=== PATIENT | male | born 1950 | race American Indian/Alaskan Native ===

== ENCOUNTER 2017-10-06 17:43 | Inpatient (IN) | payer MEDICARE ==
[2017-10-06] MEDS ORDERED: DUONEB *Not for PRN Use IH ONE (18:13)
[2017-10-06] MEDS ORDERED: NACL 0.9% 1000 ML 1,000 ML ONE (18:17)
[2017-10-06] MEDS ORDERED: HumuLIN R SUB-Q ONE (18:20)
[2017-10-06] MEDS ORDERED: HumuLIN R ONE (18:21)
[2017-10-06 18:37] LABS: Basophils # (Auto) 0.1 K/mm3 (0.0-0.1); Basophils % (Auto) 0.8 % (0.0-1.8); Hematocrit 42.8 % (35.5-45.6); Hemoglobin 14.4 gm/dl (11.8-15.2); Lymphocytes # (Auto) 1.1 K/mm3 (1.2-5.4); Lymphocytes % (Auto) 14.3 % (13.4-35.0); Mean Corpuscular HGB Conc 34 % (32-34); Mean Corpuscular Hemoglobin 31 pg (28-32); Mean Corpuscular Volume 93 fl (84-94); Monocytes # (Auto) 0.5 K/mm3 (0.0-0.8); Monocytes % (Auto) 6.6 % (0.0-7.3); Platelet Count 190 K/mm3 (140-440); Red Blood Count 4.61 M/mm3 (3.65-5.03); Red Cell Distribution Width 15.3 % (13.2-15.2)
[2017-10-06 18:48] LABS: INR 1.18 (0.87-1.13)
[2017-10-06 18:57] LABS: Albumin 2.6 g/dL (3.9-5); Calcium 8.8 mg/dL (8.4-10.2)
[2017-10-06] MEDS ORDERED: NACL 0.9% 1000 ML 1,000 ML IV ONE ×4 (19:00→22:03)
[2017-10-06] MEDS ORDERED: VANCOMYCIN VIAL IV ONE (19:07)
--- NOTE | 2017-10-06 19:10 | Emergency Department Report ---
ED Shortness of Breath HPI - General Chief Complaint: Dyspnea/Respdistress Stated Complaint: RASHID Time Seen by Provider: 10/06/17 18:10 Source: EMS Mode of arrival: Stretcher Limitations: Altered Mental Status - History of Present Illness Initial Comments: History was obtained from EMS. At noon today, patient started having respiratory difficulties. This progressed and patient became less responsive. EMS was called. At baseline, patient is interactive. 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 Absent: respiratory distress - Cardiovascular Cardiovascular Exam: Present: regular rate, normal rhythm, tachycardia, JVD. Absent: systolic murmur, diastolic murmur, rubs, gallop - GI/Abdominal GI/Abdominal exam: Present: soft, distended - Rectal Rectal exam: Present: deferred - Extremities Exam Extremities exam: Present: normal inspection - Back Exam Back exam: Present: normal inspection - Neurological Exam Neurological exam: Present: altered - Skin Skin exam: Present: warm, dry, intact, normal color. Absent: rash ED Course Vital Signs 10/06/17 10/06/17 10/06/17 17:54 17:55 18:00 Temperature 99.8 F H Pulse Rate 120 H 118 H 117 H Pulse Rate [ Bilateral] Respiratory 30 H 31 H Rate Respiratory Rate [Bilateral ] Blood Pressure 104/60 104/60 O2 Sat by Pulse 92 92 91 Oximetry 10/06/17 10/06/17 10/06/17 18:17 18:22 18:25 Temperature Pulse Rate 99 H Pulse Rate [ 102 H 99 H Bilateral] Respiratory 29 H Rate Respiratory 28 H 28 H Rate [Bilateral ] Blood Pressure O2 Sat by Pulse 99 Oximetry 10/06/17 10/06/17 19:03 19:20 Temperature Pulse Rate 99 H Pulse Rate [ Bilateral] Respiratory 16 16 Rate Respiratory Rate [Bilateral ] Blood Pressure 116/60 O2 Sat by Pulse 94 92 Oximetry ED Medical Decision Making - Lab Data Result diagrams: 10/06/17 18:24 10/06/17 20:31 - Radiology Data Radiology results: report reviewed, image reviewed - Medical Decision Making 66-year-old male with past medical history of liver cancer, dementia, full code that presents to the ER with respiratory distress. Patient unable to provide history. He was placed on BiPAP, which improved his breathing. However , patient vomited and the BiPAP was removed. He is placed on a Ventimask after this. GCS was 11 on presentation. Patient sounded rhonchorous bilaterally. Patient was given empiric antibiotics to cover for pneumonia. An NG tube was placed due to significant abdominal distention noted on abdominal x-ray. Lab work shows profound M anemia. Likely patient suffered from hepatic encephalopathy. Patient be started on lactulose. Lactic acid was 9 on presentation. Likely this could be due to liver failure versus severe sepsis. Patient was given IV fluids and repeat lactate was 6.8. Continue to trend. Glucose was elevated of presentation. Patient had an gap and acidosis. This could be due to his chronic liver disease. He'll be started on insulin drip. CT imaging shows concern for lower lobe pneumonia, constipation, and known liver malignancy. Patient will be admitted for further management. Problem list - hepatic encephalopathy - HCAP - respiratory distress - severe sepsis - lactic acidosis - constipation - DKA Critical Care Time: Yes Critical care time in (mins) excluding proc time.: 100 Critical care attestation.: If time is entered above; I have spent that time in minutes in the direct care of this critically ill patient, excluding procedure time. ED Disposition Clinical Impression: Hepatic encephalopathy, Severe sepsis, HCAP (healthcare-associated pneumonia), DKA (diabetic ketoacidoses), Altered mental status, Respiratory distress Disposition: 09 OP ADMIT IP TO THIS HOSP Is pt being admited?: Yes Does the pt Need Aspirin: No Condition: Serious Instructions: Bacterial Pneumonia (ED), Diabetic Ketoacidosis (ED)
[2017-10-06] MEDS ORDERED: D50W (25GM) Syringe IV PRN (19:20)
[2017-10-06] MEDS ORDERED: VANCOMYCIN PHARMACY TO DOSE IV SCH (20:00)
[2017-10-06] MEDS ORDERED: HumuLIN R 100 UNITS in NACL 0.9% 99 ML IV SCH (20:00)
[2017-10-06] MEDS ORDERED: VANCOMYCIN 1,250 MG in NACL 0.9% 250ML 250 ML IV ONE (20:00)
[2017-10-06] MEDS ORDERED: ZOSYN/NS 4.5GM/100ML 4.5 GM/100 ML VIAL IV SCH (20:00)
[2017-10-06 20:20] LABS: BUN/Creatinine Ratio 28; Blood Urea Nitrogen 39 mg/dL (9-20); Calcium 8.4 mg/dL (8.4-10.2); Hemolysis Index 5
--- NOTE | 2017-10-06 20:22 | XRay Report ---
FINAL REPORT PROCEDURE: XR CHEST 1V AP TECHNIQUE: Chest radiograph anteroposterior view. CPT 60845 HISTORY: c/f aspiration event COMPARISON: 10/06/2017 FINDINGS: Heart: Normal. Mediastinum/Vessels: Normal. Lungs/Pleural space: Lungs are hyperinflated. There are no confluent infiltrates or mass lesions. Pleural spaces are clear.. Bony thorax: No acute osseous abnormality. Life support devices: None. IMPRESSION: COPD No acute pulmonary process.
[2017-10-06] MEDS ORDERED: CEPHULAC FEEDTUBE ONE (20:49)
[2017-10-06 21:00] LABS: BUN/Creatinine Ratio 28; Blood Urea Nitrogen 37 mg/dL (9-20); Calcium 8.4 mg/dL (8.4-10.2); Hemolysis Index 18
--- NOTE | 2017-10-06 21:10 | XRay Report ---
FINAL REPORT EXAM: XR ABDOMEN 1V AP HISTORY: c/f NGT placement TECHNIQUE: KUB was performed Comparison: Earlier same day FINDINGS: A nasogastric tube is present. It projects over the mid gastric body. The stomach is extremely distended with air and debris. CT performed approximately 3 hours earlier shows the nasogastric tube to be present further in the stomach at that time with persistent distension. Question bezoar. Moderate fecal retention right abdomen. IMPRESSION: Nasogastric tube tip projects over the mid gastric body. However, the stomach remains distended with air and debris, question bezoar. Recommend confirming gastric location of tube.
--- NOTE | 2017-10-06 21:15 | XRay Report ---
FINAL REPORT EXAM: XR CHEST 1V AP HISTORY: Altered Mental Status TECHNIQUE: Frontal chest x-ray Comparison: Earlier same day FINDINGS: Heart size is normal. Lungs are hyperexpanded with mild coarsening of the bronchovascular interstitium unchanged from previous. Subtle superimposed interstitial infiltrates cannot be excluded. Stomach is massively distended and has a heterogeneous appearance, question gastric bezoar. There is a right humeral surgical neck fracture incompletely imaged which may be nonacute. Previous CT suggests chronic nonunion with callus formation. IMPRESSION: Coarsened bronchovascular interstitium may represent chronic interstitial change or interstitial infiltrates. Not significantly changed from earlier same day. Distended heterogeneous stomach, question gastric bezoar. Recommend nasogastric tube placement.
--- NOTE | 2017-10-06 21:20 | XRay Report ---
FINAL REPORT EXAM: XR ABDOMEN 1V AP HISTORY: abd distention TECHNIQUE: KUB was performed. FINDINGS: Image demonstrates extremely distended stomach with heterogeneous appearance which may represent debris or bezoar. There is diffuse fecal retention. Cannot assess for free air on this single view supine exam. Calcified gallstones. IMPRESSION: Extremely distended heterogeneous stomach. Possible bezoar. Diffuse fecal retention. Cause fight gallstones. Cannot exclude free air on this supine view.
--- NOTE | 2017-10-06 22:32 | Cat Scan Report ---
FINAL REPORT PROCEDURE: CT ABDOMEN PELVIS W CON TECHNIQUE: Computerized axial tomography of the abdomen and pelvis was performed after the IV injection of iodinated nonionic contrast. HISTORY: abd distention w/ vomiting, h/o liver ca COMPARISON: No prior studies are available for comparison. FINDINGS: An irregular area of consolidation is noted involving right lower lobe. There is diffuse prominence of interstitial markings. Liver demonstrates mild degree of nodular outlines. There is no evidence of splenomegaly. An in homogeneously enhancing lesion is noted in the left lobe liver measuring 4.8 x 4.1 centimeters. Bilateral adrenal glands and bilateral kidneys are unremarkable. Urinary bladder is well distended with normal outlines. Aorta is of normal caliber. There is no free fluid or free air. Multiple calculi are noted in the dependent portion of gallbladder measuring up to 9 millimeters. Small bowel loops are within normal limits. Large amount of residual stool is noted. Appendix is not distinctly visualized. There are no inflammatory changes in the right lower quadrant. A nasogastric tube is in place. Vertebral height is normal. Moderate degree degenerative changes are noted involving the lumbar spine. There is evidence of intrahepatic biliary dilatation left more than right. IMPRESSION: Irregular consolidation of right lower lobe is suspicious for pneumonia. A prominent interstitial markings most likely represent interstitial fibrosis Inhomogeneous enhancing mass lesion left lobe liver is suspicious for malignancy. Ultrasound and/or MRI evaluation is recommended. Intrahepatic biliary dilatation Nodular outlines of liver are suspicious for cirrhosis. Cholelithiasis. Ultrasound evaluation is recommended to rule out cholecystitis. Large amount of residual stool consistent with constipation.
--- NOTE | 2017-10-06 22:41 | Cat Scan Report ---
FINAL REPORT PROCEDURE: CT CHEST W CON TECHNIQUE: Computerized axial tomography of the chest was performed during the IV injection of iodinated nonionic contrast. HISTORY: c/f PE COMPARISON: No prior studies are available for comparison. TECHNICAL QUALITY: Satisfactory. FINDINGS: This study is limited due to breathing artifacts. Diffuse prominence of interstitial markings is noted. An irregular nodule measuring 9 millimeters is noted in the posterior portion right upper lobe. An irregular area of consolidation is noted involving right lower lobe. Additional scattered infiltrates are identified in the right lower lobe. Hilar structures are within normal limits. Aorta is of normal caliber. Thyroid demonstrates normal size and density. There is no lymphadenopathy. A large varicose vein is identified extending from the portal vein to the left renal vein. IMPRESSION: Consolidation right lower lobe and infiltrates right lower lobe are consistent with pneumonia. An irregular nodule is noted in the right upper lobe measuring about 9 millimeters which may also represent a nodular infiltrate. Diffuse prominence of interstitial markings are most consistent with interstitial fibrosis. 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
--- NOTE | 2017-10-06 23:02 | XRay Report ---
FINAL REPORT PROCEDURE: XR HUMERUS 2+V RT TECHNIQUE: RIGHT humerus radiographs, AP and lateral views. HISTORY: eval for fx COMPARISON: No prior studies are available for comparison. FINDINGS: Fracture (s) and/or Dislocation(s): An ununited comminuted fracture is noted involving the surgical neck right humerus with extensive callus formation and soft tissue ossification. Joint space(s): Glenohumeral and acromioclavicular alignment is maintained. Soft tissues: Normal. Bone mineralization: Extensive callus formation and soft tissue ossification is noted Foreign bodies: None. IMPRESSION: Ununited comminuted fracture surgical neck right humerus as described above. Comparison with prior studies would be of help.
--- NOTE | 2017-10-06 23:51 | History and Physical Report ---
History of Present Illness Date of examination: 10/06/17 History of present illness: 67-year-old man with a history of hepatocellular cancer, CHF, dementia, hypertension diabetes, cirrhosis was sent from the halfway to the emergency room for evaluation of shortness of breath. Patient is unable to give a history, review of system is unobtainable. Patient was recently in the hospital, he had a right humeral fracture, conservative management was initiated PAST MEDICAL HISTORY:hepatocellular cancer, CHF, dementia, hypertension diabetes , cirrhosis PAST SURGICAL HISTORY: Unknown SOCIAL HISTORY: [facility] resident, unknown tobacco, alcohol, drugs FAMILY HISTORY: Unknown Medications and Allergies Allergies Allergy/AdvReac Type Severity Reaction Status Date / Time No Known Allergies Allergy Verified 10/06/17 18:35 Active Meds: Active Medications Dextrose (D50w (25gm) Syringe) 0 ml IV PRN PRN PRN Reason: Hypoglycemia Piperacillin Sod/Tazobactam Sod (Zosyn/Ns 4.5gm/100ml) 4.5 gm in 100 mls @ 200 mls/hr IV ONCE YANIV Insulin Human Regular 100 (units/ Sodium Chloride) 100 mls @ 1 mls/hr IV TITR YANIV; Protocol Last Titration: 10/06/17 22:53 Dose: 7 units/hr, 7 mls/hr Vancomycin HCl (Vancomycin Pharmacy To Dose) 1 each IV PKCONSULT YANIV Exam - Physical Exam Narrative exam: Gen. appearance: Patient lying in bed, no apparent distress HEENT: Normocephalic, atraumatic, pupils equally round and reactive to light, unable to do extraocular movement, and no sclericterus,. No JVD or thyromegaly or nodule,neck supple, no carotid bruit ,mucous membranes moist, no exudate or erythema Heart: S1, S2, regular rate and rhythm Lungs: Clear to auscultation bilaterally, breathing comfortable Abdomen: Positive bowel sounds, softr, nondistended, no organomegaly Extremity: No edema, cyanosis, clubbing Skin: No rash, nodules, warm, dry Neuro: ldethargic - Constitutional Vitals: Temp Pulse Resp BP Pulse Ox 99.8 F H 99 H 16 116/60 92 10/06/17 17:55 10/06/17 19:03 10/06/17 19:20 10/06/17 19:03 10/06/17 19:20 Results - Labs CBC & Chem 7: 10/06/17 18:24 10/07/17 01:34 Labs: Abnormal lab results 10/06/17 10/06/17 10/06/17 Range/Units 18:20 18:21 18:24 RDW 15.3 H (13.2-15.2) % Lymph # 1.1 L (1.2-5.4) K/mm3 Seg Neutrophils % 78.3 H (40.0-70.0) % PT (12.2-14.9) Sec. INR (0.87-1.13) POC ABG pCO2 22.2 L (35-45) POC ABG pO2 170 H (80-105) Sodium (137-145) mmol/L Potassium (3.6-5.0) mmol/L Chloride (98-107) mmol/L Carbon Dioxide (22-30) mmol/L BUN (9-20) mg/dL Glucose (75-100) mg/dL POC Glucose > 500 H (70-105) Lactic Acid (0.7-2.0) mmol/L Phosphorus (2.5-4.5) mg/dL Alkaline Phosphatase (35-129) units/L Ammonia (25-60) umol/L Total Protein (6.3-8.2) g/dL Albumin (3.9-5) g/dL 10/06/17 10/06/17 10/06/17 Range/Units 18:24 18:24 18:24 RDW (13.2-15.2) % Lymph # (1.2-5.4) K/mm3 Seg Neutrophils % (40.0-70.0) % PT 15.7 H (12.2-14.9) Sec. INR 1.18 H (0.87-1.13) POC ABG pCO2 (35-45) POC ABG pO2 (80-105) Sodium (137-145) mmol/L Potassium (3.6-5.0) mmol/L Chloride (98-107) mmol/L Carbon Dioxide 14 L (22-30) mmol/L BUN 39 H (9-20) mg/dL Glucose 564 H* (75-100) mg/dL POC Glucose (70-105) Lactic Acid 10.00 H* (0.7-2.0) mmol/L Phosphorus (2.5-4.5) mg/dL Alkaline Phosphatase 266 H (35-129) units/L Ammonia (25-60) umol/L Total Protein 9.1 H (6.3-8.2) g/dL Albumin 2.6 L (3.9-5) g/dL 10/06/17 10/06/17 10/06/17 Range/Units 18:29 19:37 19:37 RDW (13.2-15.2) % Lymph # (1.2-5.4) K/mm3 Seg Neutrophils % (40.0-70.0) % PT (12.2-14.9) Sec. INR (0.87-1.13) POC ABG pCO2 (35-45) POC ABG pO2 (80-105) Sodium (137-145) mmol/L Potassium (3.6-5.0) mmol/L Chloride (98-107) mmol/L Carbon Dioxide (22-30) mmol/L BUN (9-20) mg/dL Glucose (75-100) mg/dL POC Glucose (70-105) Lactic Acid 9.10 H* (0.7-2.0) mmol/L Phosphorus 4.60 H (2.5-4.5) mg/dL Alkaline Phosphatase (35-129) units/L Ammonia 611.0 H (25-60) umol/L Total Protein (6.3-8.2) g/dL Albumin (3.9-5) g/dL 10/06/17 10/06/17 10/06/17 Range/Units 19:37 20:31 20:31 RDW (13.2-15.2) % Lymph # (1.2-5.4) K/mm3 Seg Neutrophils % (40.0-70.0) % PT (12.2-14.9) Sec. INR (0.87-1.13) POC ABG pCO2 (35-45) POC ABG pO2 (80-105) Sodium 147 H (137-145) mmol/L Potassium 3.5 L (3.6-5.0) mmol/L Chloride 109.2 H (98-107) mmol/L Carbon Dioxide 14 L 15 L (22-30) mmol/L BUN 39 H 37 H (9-20) mg/dL Glucose 531 H* 526 H* (75-100) mg/dL POC Glucose (70-105) Lactic Acid 8.10 H* (0.7-2.0) mmol/L Phosphorus (2.5-4.5) mg/dL Alkaline Phosphatase (35-129) units/L Ammonia (25-60) umol/L Total Protein (6.3-8.2) g/dL Albumin (3.9-5) g/dL 10/06/17 10/06/17 Range/Units 21:23 22:57 RDW (13.2-15.2) % Lymph # (1.2-5.4) K/mm3 Seg Neutrophils % (40.0-70.0) % PT (12.2-14.9) Sec. INR (0.87-1.13) POC ABG pCO2 (35-45) POC ABG pO2 (80-105) Sodium (137-145) mmol/L Potassium (3.6-5.0) mmol/L Chloride (98-107) mmol/L Carbon Dioxide (22-30) mmol/L BUN (9-20) mg/dL Glucose (75-100) mg/dL POC Glucose 361 H (70-105) Lactic Acid 6.80 H* (0.7-2.0) mmol/L Phosphorus (2.5-4.5) mg/dL Alkaline Phosphatase (35-129) units/L Ammonia (25-60) umol/L Total Protein (6.3-8.2) g/dL Albumin (3.9-5) g/dL - Imaging and Cardiology Chest x-ray: report reviewed Abdominal x-ray: report reviewed CT scan - abdomen: report reviewed CT scan - chest: report reviewed CT scan - pelvis: report reviewed Assessment and Plan Assessment DKA Sepsis pneumonia Hepatic encephalopathy CHF, stable and Chronic right humeral fracture Hepatocellular cancer Dementia Plan Started DKA protocol with IV insulin Hold IV fluids secondary to CHF, IV fluid already given in the emergency room Start IV Zosyn, status post vancomycin Start lactulose, monitor ammonia level, follow cultures Consult critical care, place right arm in a sling DVT prophylaxis
[2017-10-07] MEDS ORDERED: SODIUM CHLORIDE FLUSH SYRINGE 10 ML IV PRN (00:51)
[2017-10-07] MEDS ORDERED: TYLENOL PO PRN (00:51)
[2017-10-07] MEDS ORDERED: CEPHULAC PO PRN (00:51)
[2017-10-07 01:14] LABS: BUN/Creatinine Ratio 33; Blood Urea Nitrogen 33 mg/dL (9-20); Calcium 8.4 mg/dL (8.4-10.2); Hemolysis Index 9
[2017-10-07 02:21] LABS: BUN/Creatinine Ratio 36; Blood Urea Nitrogen 32 mg/dL (9-20); Calcium 8.5 mg/dL (8.4-10.2); Hemolysis Index 3
[2017-10-07] MEDS ORDERED: K-DUR PO ONE (03:37)
[2017-10-07] MEDS: CEPHULAC PO SCH ×3 (05:24→18:42)
[2017-10-07 05:25] LABS: BUN/Creatinine Ratio 39; Blood Urea Nitrogen 31 mg/dL (9-20); Calcium 8.2 mg/dL (8.4-10.2); Hemolysis Index 65
[2017-10-07] MEDS: ZOSYN/NS 3.375GM/50ML 3.375 GM/50 ML BAG IV SCH ×3 (07:53→22:20)
[2017-10-07] MEDS: SODIUM CHLORIDE FLUSH SYRINGE 10 ML IV SCH ×2 (10:10→22:05)
[2017-10-07 10:31] LABS: Albumin 2.3 g/dL (3.9-5); Bilirubin,Direct 0.3 mg/dL (0-0.2)
--- NOTE | 2017-10-07 10:45 | Progress Note ---
Assessment and Plan Assessment and plan: Sepsis syndrome On Zosyn and vancomycin. Blood cultures drawn Hepatic encephalopathy. Ammonia level is improving. Ammonia now 103 , was 611 on admission Consult GI Recheck Ammonia level in am Diabetic ketoacidosis he is on Insulin drip. Anion gap is now close to normal Will dc Insulin drip and transittion to subcut Insulin Hypernatremia. Repeat BMP Hypokalemia. Will replete and recheck. Lactic acidosis due to Sepsis Right humerus fracture, s/p sling Malnutrition. Consult Windows Administrator DVT prophylaxis: SCDs only. No anticoag given because of liver cancer. History Interval history: Patient is 67 yo with hepatocellular cancer, sent in from SNF for altered mental status Hospitalist Physical - Physical exam Narrative exam: General: Not in acute distress, restless HEENT:Normocephalic, atraumatic Neck:supple,no JVD Lungs: Clear to auscultation bilaterally, no crackles, no wheeze Heart:S1 and S2 regular tachycardia, no murmurs, rubs or gallop Abd: soft, non tender, non distended, normal bowel sounds Ext: No edema, no clubbing, no cyanosis Neuro: Lethargic, confused,restless,moves all ext. - Constitutional Vitals: Temp Pulse Resp BP Pulse Ox 98.3 F 91 H 18 121/67 100 10/07/17 07:34 10/07/17 07:34 10/07/17 07:15 10/07/17 07:15 10/07/17 07:15 Results - Labs CBC & Chem 7: 10/06/17 18:24 10/07/17 19:01 Labs: Laboratory Last Values WBC 7.4 K/mm3 (4.5-11.0) 10/06/17 18:24 RBC 4.61 M/mm3 (3.65-5.03) 10/06/17 18:24 Hgb 14.4 gm/dl (11.8-15.2) 10/06/17 18:24 Hct 42.8 % (35.5-45.6) 10/06/17 18:24 MCV 93 fl (84-94) 10/06/17 18:24 MCH 31 pg (28-32) 10/06/17 18:24 MCHC 34 % (32-34) 10/06/17 18:24 RDW 15.3 % (13.2-15.2) H 10/06/17 18:24 Plt Count 190 K/mm3 (140-440) 10/06/17 18:24 Lymph % (Auto) 14.3 % (13.4-35.0) 10/06/17 18:24 [place] % (Auto) 6.6 % (0.0-7.3) 10/06/17 18: Eos % (Auto) 0.0 % (0.0-4.3) 10/06/17 18: Baso % (Auto) 0.8 % (0.0-1.8) 10/06/17 18: Lymph # 1.1 K/mm3 (1.2-5.4) L 10/06/17 18: [place] # 0.5 K/mm3 (0.0-0.8) 10/06/17 18: Eos # 0.0 K/mm3 (0.0-0.4) 10/06/17 18: Baso # 0.1 K/mm3 (0.0-0.1) 10/06/17 18: Seg Neutrophils % 78.3 % (40.0-70.0) H 10/06/17 18: Seg Neutrophils # 5.8 K/mm3 (1.8-7.7) 10/06/17 18: PT 15.7 Sec. (12.2-14.9) H 10/06/17 18: INR 1.18 (0.87-1.13) H 10/06/17 18: POC ABG pH 7.396 (7.35-7.45) 10/06/17 18:20 POC ABG pCO2 22.2 (35-45) L 10/06/17 18:20 POC ABG pO2 170 (80-105) H 10/06/17 18:20 POC ABG HCO3 13.6 10/06/17 18:20 POC ABG Total CO2 14 10/06/17 18:20 POC ABG O2 Sat 100 10/06/17 18:20 POC ABG Base Excess -11 10/06/17 18:20 FiO2 85 % 10/06/17 18:20 Sodium 147 mmol/L (137-145) H 10/07/17 04:58 Potassium 3.7 mmol/L (3.6-5.0) 10/07/17 04:58 Chloride 113.8 mmol/L (98-107) H 10/07/17 04:58 Carbon Dioxide 17 mmol/L (22-30) L 10/07/17 04:58 Anion Gap 20 mmol/L 10/07/17 04:58 BUN 31 mg/dL (9-20) H 10/07/17 04:58 Creatinine 0.8 mg/dL (0.8-1.5) 10/07/17 04:58 Estimated GFR > 60 ml/min 10/07/17 04:58 BUN/Creatinine Ratio 39 % 10/07/17 04:58 Glucose 100 mg/dL (75-100) 10/07/17 04:58 POC Glucose 249 (70-105) H 10/07/17 10:10 Ketones Quantitative Negative (Negative) 10/06/17 Unknown Lactic Acid 3.10 mmol/L (0.7-2.0) H* 10/07/17 Unknown Calcium 8.2 mg/dL (8.4-10.2) L 10/07/17 04:58 Phosphorus 4.60 mg/dL (2.5-4.5) H 10/06/17 19:37 Magnesium 2.20 mg/dL (1.7-2.3) 10/06/17 19:37 Total Bilirubin 1.10 mg/dL (0.1-1.2) 10/07/17 09:29 Direct Bilirubin 0.3 mg/dL (0-0.2) H 10/07/17 09:29 Indirect Bilirubin 0.8 mg/dL 10/07/17 09:29 AST 53 units/L (5-40) H 10/07/17 09:29 ALT 40 units/L (7-56) 10/07/17 09:29 Alkaline Phosphatase 231 units/L (35-129) H 10/07/17 09:29 Ammonia 103.0 umol/L (25-60) H 10/07/17 09:29 Troponin T 0.011 ng/mL (0.00-0.029) 10/06/17 18:24 NT-Pro-B Natriuret Pep 258.8 pg/mL (0-900) 10/06/17 18:24 Total Protein 8.4 g/dL (6.3-8.2) H 10/07/17 09:29 Albumin 2.3 g/dL (3.9-5) L 10/07/17 09:29 Albumin/Globulin Ratio 0.4 % 10/07/17 09:29
[2017-10-07 12:22] LABS: BUN/Creatinine Ratio 40; Blood Urea Nitrogen 28 mg/dL (9-20); Calcium 8.3 mg/dL (8.4-10.2); Hemolysis Index 3
[2017-10-07] MEDS: KCL 10MEQ/100ML 10 MEQ/100 ML BAG IV SCH ×4 (12:49→17:46)
[2017-10-07] MEDS ORDERED: KCL 10MEQ/100ML 10 MEQ/100 ML BAG IV ONE ×5 (12:52→15:54)
[2017-10-07] MEDS ORDERED: NACL 0.9% 1000 ML 1,000 ML IV SCH (13:00)
--- NOTE | 2017-10-07 16:18 | Consultation ---
History of Present Illness - Reason for Consult Consult date: 10/07/17 Hepatic encephalopathy Requesting physician: THERON WAGNER - History of Present Illness Mr. Rudolph is a 67-year-old man who was brought from the senior living with shortness of breath and confusion. He is unable to give a history. His sister did not respond by phone, and his niece is not aware a lot of his history. History is therefore derived from the chart. Patient was recently hospitalized at [facility] with a humeral fracture. He was apparently diagnosed with cirrhosis and hepatocellular carcinoma at that time. According to the ER note, he was referred to the senior living for "conservative management." On admission, patient had an ammonia of greater than 600, and it has now dropped down to 80 with resuscitation and lactulose. He had a CT scan which showed a large left liver lobe mass consistent with neoplasm. He is unable to give any history at present. His niece was unaware of the malignancy. The malignancy however was clearly known when the patient was admitted and likely known by his sister. There is no GI bleeding. Patient appears to have a pneumonia and is being treated for sepsis. Past History Past Medical History: cancer (Likely liver), diabetes, liver disease (cirrhosis) , other (dementia) Past Surgical History: Other (unknown history) Social history: other (Lives in [place]) Medications and Allergies Allergies Allergy/AdvReac Type Severity Reaction Status Date / Time No Known Allergies Allergy Verified 10/06/17 18:35 Home Medications Medication Instructions Recorded Confirmed Last Taken Type Cholecalciferol (Vitamin D3) 1,000 unit PO DAILY 10/07/17 10/07/17 Unknown History [Vitamin D3] Esomeprazole Magnesium [Nexium] 40 mg PO QAM 10/07/17 10/07/17 Unknown History Folic Acid [Folvite] 1 mg PO QDAY 10/07/17 10/07/17 Unknown History Furosemide [Lasix] 20 mg PO QDAY 10/07/17 10/07/17 Unknown History Insulin Detemir [Levemir VIAL] 16 unit SQ QHS 10/07/17 10/07/17 Unknown History Lispro Insulin [Humalog] 5 unit SQ TID 10/07/17 10/07/17 Unknown History Morphine ER [Ms Contin ER] 15 mg PO Q12H 10/07/17 10/07/17 Unknown History Pyridoxine [Vitamin B-6] 50 mg PO DAILY 10/07/17 10/07/17 Unknown History Sennosides [Senna] 17.2 mg PO QHS 10/07/17 10/07/17 Unknown History Spironolactone [Aldactone] 50 mg PO QDAY 10/07/17 10/07/17 Unknown History Thiamine [Vitamin B-1] 100 mg PO QDAY 10/07/17 10/07/17 Unknown History oxyCODONE /ACETAMINOPHEN [Percocet 1 tab PO Q6HR PRN 10/07/17 10/07/17 Unknown History 5/325] Active Meds: Active Medications Acetaminophen (Tylenol) 650 mg PO Q4H PRN PRN Reason: Pain MILD(1-3)/Fever >100.5/CAMPOS Albuterol (Proventil) 2.5 mg IH Q4HRT PRN PRN Reason: Shortness Of Breath Dextrose (D50w (25gm) Syringe) 0 ml IV PRN PRN PRN Reason: Hypoglycemia Last Admin: 10/07/17 05:10 Dose: 50 ml Piperacillin Sod/Tazobactam Sod (Zosyn/Ns 3.375gm/50ml) 3.375 gm in 50 mls @ 100 mls/hr IV Q8HR YANIV; Protocol Last Admin: 10/07/17 14:34 Dose: 100 mls/hr Sodium Chloride (Nacl 0.9% 1000 Ml) 1,000 mls @ 100 mls/hr IV DIRECT YANIV Potassium Chloride (Kcl 10meq/100ml) 10 meq in 100 mls @ 100 mls/hr IV Q1H YANIV Stop: 10/07/17 16:59 Last Admin: 10/07/17 14:34 Dose: 100 mls/hr Insulin Human Isoph/Insulin Regular (Humulin 70/30) 10 unit SUB-Q BIDDIAB YANIV Last Admin: 10/07/17 12:49 Dose: 10 unit Lactulose (Cephulac) 20 gm PO Q6HR YANIV Last Admin: 10/07/17 12:47 Dose: 20 gm Ondansetron HCl (Zofran) 4 mg IV Q8H PRN PRN Reason: Nausea And Vomiting Sodium Chloride (Sodium Chloride Flush Syringe 10 Ml) 10 ml IV BID YANIV Last Admin: 10/07/17 10:10 Dose: 10 ml Sodium Chloride (Sodium Chloride Flush Syringe 10 Ml) 10 ml IV PRN PRN PRN Reason: LINE FLUSH Review of Systems ROS unobtainable: due to mental status Exam - Constitutional Vitals: Temp Pulse Resp BP Pulse Ox 98.3 F 92 H 21 132/68 99 10/07/17 07:34 10/07/17 10:30 10/07/17 10:30 10/07/17 10:30 10/07/17 10:30 General appearance: Present: mild distress, cachectic, disheveled - EENT Eyes: Present: PERRL, EOM intact - Respiratory Respiratory effort: normal Respiratory: bilateral: rhonchi (coarse anteriorly) - Cardiovascular Rhythm: regular Heart Sounds: Present: S1 & S2 - Extremities Extremities: No edema - Abdominal General gastrointestinal: Present: soft, non-tender, other (No masses noted. Some type of skin dressing on abdomen) Results - Labs CBC & Chem 7: 10/06/17 18:24 10/07/17 10:46 Labs: Abnormal lab results 10/06/17 10/06/17 10/06/17 Range/Units 18:20 18:21 18:24 RDW 15.3 H (13.2-15.2) % Lymph # 1.1 L (1.2-5.4) K/mm3 Seg Neutrophils % 78.3 H (40.0-70.0) % PT (12.2-14.9) Sec. INR (0.87-1.13) POC ABG pCO2 22.2 L (35-45) POC ABG pO2 170 H (80-105) Sodium (137-145) mmol/L Potassium (3.6-5.0) mmol/L Chloride (98-107) mmol/L Carbon Dioxide (22-30) mmol/L BUN (9-20) mg/dL Creatinine (0.8-1.5) mg/dL Glucose (75-100) mg/dL POC Glucose > 500 H (70-105) Lactic Acid (0.7-2.0) mmol/L Calcium (8.4-10.2) mg/dL Phosphorus (2.5-4.5) mg/dL Direct Bilirubin (0-0.2) mg/dL AST (5-40) units/L Alkaline Phosphatase (35-129) units/L Ammonia (25-60) umol/L Total Protein (6.3-8.2) g/dL Albumin (3.9-5) g/dL 10/06/17 10/06/17 10/06/17 Range/Units 18:24 18:24 18:24 RDW (13.2-15.2) % Lymph # (1.2-5.4) K/mm3 Seg Neutrophils % (40.0-70.0) % PT 15.7 H (12.2-14.9) Sec. INR 1.18 H (0.87-1.13) POC ABG pCO2 (35-45) POC ABG pO2 (80-105) Sodium (137-145) mmol/L Potassium (3.6-5.0) mmol/L Chloride (98-107) mmol/L Carbon Dioxide 14 L (22-30) mmol/L BUN 39 H (9-20) mg/dL Creatinine (0.8-1.5) mg/dL Glucose 564 H* (75-100) mg/dL POC Glucose (70-105) Lactic Acid 10.00 H* (0.7-2.0) mmol/L Calcium (8.4-10.2) mg/dL Phosphorus (2.5-4.5) mg/dL Direct Bilirubin (0-0.2) mg/dL AST (5-40) units/L Alkaline Phosphatase 266 H (35-129) units/L Ammonia (25-60) umol/L Total Protein 9.1 H (6.3-8.2) g/dL Albumin 2.6 L (3.9-5) g/dL 10/06/17 10/06/17 10/06/17 Range/Units 18:29 19:37 19:37 RDW (13.2-15.2) % Lymph # (1.2-5.4) K/mm3 Seg Neutrophils % (40.0-70.0) % PT (12.2-14.9) Sec. INR (0.87-1.13) POC ABG pCO2 (35-45) POC ABG pO2 (80-105) Sodium (137-145) mmol/L Potassium (3.6-5.0) mmol/L Chloride (98-107) mmol/L Carbon Dioxide (22-30) mmol/L BUN (9-20) mg/dL Creatinine (0.8-1.5) mg/dL Glucose (75-100) mg/dL POC Glucose (70-105) Lactic Acid 9.10 H* (0.7-2.0) mmol/L Calcium (8.4-10.2) mg/dL Phosphorus 4.60 H (2.5-4.5) mg/dL Direct Bilirubin (0-0.2) mg/dL AST (5-40) units/L Alkaline Phosphatase (35-129) units/L Ammonia 611.0 H (25-60) umol/L Total Protein (6.3-8.2) g/dL Albumin (3.9-5) g/dL 10/06/17 10/06/17 10/06/17 Range/Units 19:37 20:31 20:31 RDW (13.2-15.2) % Lymph # (1.2-5.4) K/mm3 Seg Neutrophils % (40.0-70.0) % PT (12.2-14.9) Sec. INR (0.87-1.13) POC ABG pCO2 (35-45) POC ABG pO2 (80-105) Sodium 147 H (137-145) mmol/L Potassium 3.5 L (3.6-5.0) mmol/L Chloride 109.2 H (98-107) mmol/L Carbon Dioxide 14 L 15 L (22-30) mmol/L BUN 39 H 37 H (9-20) mg/dL Creatinine (0.8-1.5) mg/dL Glucose 531 H* 526 H* (75-100) mg/dL POC Glucose (70-105) Lactic Acid 8.10 H* (0.7-2.0) mmol/L Calcium (8.4-10.2) mg/dL Phosphorus (2.5-4.5) mg/dL Direct Bilirubin (0-0.2) mg/dL AST (5-40) units/L Alkaline Phosphatase (35-129) units/L Ammonia (25-60) umol/L Total Protein (6.3-8.2) g/dL Albumin (3.9-5) g/dL 10/06/17 10/06/17 10/06/17 Range/Units 21:23 22:57 23:59 RDW (13.2-15.2) % Lymph # (1.2-5.4) K/mm3 Seg Neutrophils % (40.0-70.0) % PT (12.2-14.9) Sec. INR (0.87-1.13) POC ABG pCO2 (35-45) POC ABG pO2 (80-105) Sodium 149 H (137-145) mmol/L Potassium 3.2 L (3.6-5.0) mmol/L Chloride 113.1 H (98-107) mmol/L Carbon Dioxide 17 L (22-30) mmol/L BUN 33 H (9-20) mg/dL Creatinine (0.8-1.5) mg/dL Glucose 296 H (75-100) mg/dL POC Glucose 361 H (70-105) Lactic Acid 6.80 H* (0.7-2.0) mmol/L Calcium (8.4-10.2) mg/dL Phosphorus (2.5-4.5) mg/dL Direct Bilirubin (0-0.2) mg/dL AST (5-40) units/L Alkaline Phosphatase (35-129) units/L Ammonia (25-60) umol/L Total Protein (6.3-8.2) g/dL Albumin (3.9-5) g/dL 18 18 10/07/17 Range/Units 23:59 00:16 01:28 RDW (13.2-15.2) % Lymph # (1.2-5.4) K/mm3 Seg Neutrophils % (40.0-70.0) % PT (12.2-14.9) Sec. INR (0.87-1.13) POC ABG pCO2 (35-45) POC ABG pO2 (80-105) Sodium (137-145) mmol/L Potassium (3.6-5.0) mmol/L Chloride (98-107) mmol/L Carbon Dioxide (22-30) mmol/L BUN (9-20) mg/dL Creatinine (0.8-1.5) mg/dL Glucose (75-100) mg/dL POC Glucose 265 H (70-105) Lactic Acid 4.60 H* 3.80 H* (0.7-2.0) mmol/L Calcium (8.4-10.2) mg/dL Phosphorus (2.5-4.5) mg/dL Direct Bilirubin (0-0.2) mg/dL AST (5-40) units/L Alkaline Phosphatase (35-129) units/L Ammonia (25-60) umol/L Total Protein (6.3-8.2) g/dL Albumin (3.9-5) g/dL 10/07/17 10/07/17 10/07/17 Range/Units 01:32 01:34 03:50 RDW (13.2-15.2) % Lymph # (1.2-5.4) K/mm3 Seg Neutrophils % (40.0-70.0) % PT (12.2-14.9) Sec. INR (0.87-1.13) POC ABG pCO2 (35-45) POC ABG pO2 (80-105) Sodium 151 H (137-145) mmol/L Potassium 3.1 L (3.6-5.0) mmol/L Chloride 115.4 H (98-107) mmol/L Carbon Dioxide 19 L (22-30) mmol/L BUN 32 H (9-20) mg/dL Creatinine (0.8-1.5) mg/dL Glucose 172 H (75-100) mg/dL POC Glucose 190 H 68 L (70-105) Lactic Acid (0.7-2.0) mmol/L Calcium (8.4-10.2) mg/dL Phosphorus (2.5-4.5) mg/dL Direct Bilirubin (0-0.2) mg/dL AST (5-40) units/L Alkaline Phosphatase (35-129) units/L Ammonia (25-60) umol/L Total Protein (6.3-8.2) g/dL Albumin (3.9-5) g/dL 10/07/17 10/07/17 10/07/17 Range/Units 04:58 04:58 04:58 RDW (13.2-15.2) % Lymph # (1.2-5.4) K/mm3 Seg Neutrophils % (40.0-70.0) % PT (12.2-14.9) Sec. INR (0.87-1.13) POC ABG pCO2 (35-45) POC ABG pO2 (80-105) Sodium 147 H (137-145) mmol/L Potassium (3.6-5.0) mmol/L Chloride 113.8 H (98-107) mmol/L Carbon Dioxide 17 L (22-30) mmol/L BUN 31 H (9-20) mg/dL Creatinine (0.8-1.5) mg/dL Glucose (75-100) mg/dL POC Glucose (70-105) Lactic Acid 3.50 H* (0.7-2.0) mmol/L Calcium 8.2 L (8.4-10.2) mg/dL Phosphorus (2.5-4.5) mg/dL Direct Bilirubin (0-0.2) mg/dL AST (5-40) units/L Alkaline Phosphatase (35-129) units/L Ammonia 165.0 H (25-60) umol/L Total Protein (6.3-8.2) g/dL Albumin (3.9-5) g/dL 10/07/17 10/07/17 10/07/17 Range/Units 05:21 08:44 09:29 RDW (13.2-15.2) % Lymph # (1.2-5.4) K/mm3 Seg Neutrophils % (40.0-70.0) % PT (12.2-14.9) Sec. INR (0.87-1.13) POC ABG pCO2 (35-45) POC ABG pO2 (80-105) Sodium (137-145) mmol/L Potassium (3.6-5.0) mmol/L Chloride (98-107) mmol/L Carbon Dioxide (22-30) mmol/L BUN (9-20) mg/dL Creatinine (0.8-1.5) mg/dL Glucose (75-100) mg/dL POC Glucose 184 H 222 H (70-105) Lactic Acid (0.7-2.0) mmol/L Calcium (8.4-10.2) mg/dL Phosphorus (2.5-4.5) mg/dL Direct Bilirubin (0-0.2) mg/dL AST (5-40) units/L Alkaline Phosphatase (35-129) units/L Ammonia 103.0 H (25-60) umol/L Total Protein (6.3-8.2) g/dL Albumin (3.9-5) g/dL 10/07/17 10/07/17 10/07/17 Range/Units 09:29 09:29 10:10 RDW (13.2-15.2) % Lymph # (1.2-5.4) K/mm3 Seg Neutrophils % (40.0-70.0) % PT (12.2-14.9) Sec. INR (0.87-1.13) POC ABG pCO2 (35-45) POC ABG pO2 (80-105) Sodium (137-145) mmol/L Potassium (3.6-5.0) mmol/L Chloride (98-107) mmol/L Carbon Dioxide (22-30) mmol/L BUN (9-20) mg/dL Creatinine (0.8-1.5) mg/dL Glucose (75-100) mg/dL POC Glucose 249 H (70-105) Lactic Acid 2.80 H* (0.7-2.0) mmol/L Calcium (8.4-10.2) mg/dL Phosphorus (2.5-4.5) mg/dL Direct Bilirubin 0.3 H (0-0.2) mg/dL AST 53 H (5-40) units/L Alkaline Phosphatase 231 H (35-129) units/L Ammonia (25-60) umol/L Total Protein 8.4 H (6.3-8.2) g/dL Albumin 2.3 L (3.9-5) g/dL 10/07/17 10/07/17 10/07/17 Range/Units 10:46 10:46 11:44 RDW (13.2-15.2) % Lymph # (1.2-5.4) K/mm3 Seg Neutrophils % (40.0-70.0) % PT (12.2-14.9) Sec. INR (0.87-1.13) POC ABG pCO2 (35-45) POC ABG pO2 (80-105) Sodium 150 H (137-145) mmol/L Potassium 2.9 L* D (3.6-5.0) mmol/L Chloride 120.1 H (98-107) mmol/L Carbon Dioxide 18 L (22-30) mmol/L BUN 28 H (9-20) mg/dL Creatinine 0.7 L (0.8-1.5) mg/dL Glucose 166 H (75-100) mg/dL POC Glucose 145 H (70-105) Lactic Acid 2.80 H* (0.7-2.0) mmol/L Calcium 8.3 L (8.4-10.2) mg/dL Phosphorus (2.5-4.5) mg/dL Direct Bilirubin (0-0.2) mg/dL AST (5-40) units/L Alkaline Phosphatase (35-129) units/L Ammonia (25-60) umol/L Total Protein (6.3-8.2) g/dL Albumin (3.9-5) g/dL 10/07/17 10/07/17 10/07/17 Range/Units 15:23 15:23 15:37 RDW (13.2-15.2) % Lymph # (1.2-5.4) K/mm3 Seg Neutrophils % (40.0-70.0) % PT (12.2-14.9) Sec. INR (0.87-1.13) POC ABG pCO2 (35-45) POC ABG pO2 (80-105) Sodium (137-145) mmol/L Potassium (3.6-5.0) mmol/L Chloride (98-107) mmol/L Carbon Dioxide (22-30) mmol/L BUN (9-20) mg/dL Creatinine (0.8-1.5) mg/dL Glucose (75-100) mg/dL POC Glucose 242 H (70-105) Lactic Acid 3.00 H* (0.7-2.0) mmol/L Calcium (8.4-10.2) mg/dL Phosphorus (2.5-4.5) mg/dL Direct Bilirubin (0-0.2) mg/dL AST (5-40) units/L Alkaline Phosphatase (35-129) units/L Ammonia 83.0 H (25-60) umol/L Total Protein (6.3-8.2) g/dL Albumin (3.9-5) g/dL 10/07/17 Range/Units Unknown RDW (13.2-15.2) % Lymph # (1.2-5.4) K/mm3 Seg Neutrophils % (40.0-70.0) % PT (12.2-14.9) Sec. INR (0.87-1.13) POC ABG pCO2 (35-45) POC ABG pO2 (80-105) Sodium (137-145) mmol/L Potassium (3.6-5.0) mmol/L Chloride (98-107) mmol/L Carbon Dioxide (22-30) mmol/L BUN (9-20) mg/dL Creatinine (0.8-1.5) mg/dL Glucose (75-100) mg/dL POC Glucose (70-105) Lactic Acid 3.10 H* (0.7-2.0) mmol/L Calcium (8.4-10.2) mg/dL Phosphorus (2.5-4.5) mg/dL Direct Bilirubin (0-0.2) mg/dL AST (5-40) units/L Alkaline Phosphatase (35-129) units/L Ammonia (25-60) umol/L Total Protein (6.3-8.2) g/dL Albumin (3.9-5) g/dL Assessment and Plan 1. Cirrhosis/liver mass/encephalopathy - we need to obtain records from prior hospitalization at [place]. However, patient is apparently known to have cirrhosis of the liver with known malignancy. Current mental status changes and shortness of breath likely related to sepsis and probable pneumonia. He appears to be responding well as regards his ammonia, to resuscitative measures. At this point, I would continue management as is already ongoing. There is no specific treatment that I would offer for his hepatocellular process other than the lactulose that is already being giving him. Once further data is obtained, and family's understanding is ascertained, if there is any need for further GI input, please do not hesitate to contact us. Discussed with Dr. Wagner. Will sign off.
[2017-10-07 17:59] LABS: Bilirubin,Urine NEG (Negative); Blood,Urine LG (Negative); Color,Urine Yellow (Yellow); Mucus,Urine FEW /HPF
[2017-10-07] MEDS ORDERED: KCL 10MEQ/100ML 10 MEQ/100 ML BAG IV SCH (18:00)
[2017-10-07 19:55] LABS: BUN/Creatinine Ratio 42; Blood Urea Nitrogen 25 mg/dL (9-20); Calcium 8.4 mg/dL (8.4-10.2); Hemolysis Index 53
[2017-10-07] MEDS: PROVENTIL IH PRN (21:34)
[2017-10-07] MEDS ORDERED: VANCOMYCIN PHARMACY TO DOSE IV SCH (23:00)
[2017-10-08] MEDS: VANCOMYCIN 750 MG in NACL 0.9% 250ML 250 ML IV SCH ×2 (05:00→15:25)
[2017-10-08 06:25] LABS: Hematocrit 37.6 % (35.5-45.6); Hemoglobin 12.4 gm/dl (11.8-15.2); Mean Corpuscular HGB Conc 33 % (32-34); Mean Corpuscular Hemoglobin 30 pg (28-32); Mean Corpuscular Volume 91 fl (84-94); Platelet Count 185 K/mm3 (140-440); Red Blood Count 4.12 M/mm3 (3.65-5.03); Red Cell Distribution Width 14.8 % (13.2-15.2)
[2017-10-08 06:32] LABS: BUN/Creatinine Ratio 38; Blood Urea Nitrogen 23 mg/dL (9-20); Calcium 8.5 mg/dL (8.4-10.2); Hemolysis Index 5
[2017-10-08] MEDS: ZOSYN/NS 3.375GM/50ML 3.375 GM/50 ML BAG IV SCH ×3 (08:56→22:20)
[2017-10-08] MEDS: CEPHULAC PO SCH ×4 (09:03→18:00)
--- NOTE | 2017-10-08 15:18 | Progress Note ---
Assessment and Plan Assessment and plan: Sepsis syndrome On Zosyn and vancomycin. Blood cultures drawn Hepatic encephalopathy. Ammonia level is improving. Ammonia 90 today from 611 on admission Consulted GI, he was evaluated Recheck Ammonia level in am Diabetic ketoacidosis he is now off Insulin drip. Hypernatremia. Repeat BMP Start 0.45NS Hypokalemia. Will replete and recheck. Lactic acidosis due to Sepsis Right humerus fracture, s/p sling Malnutrition. Consult [employer] DVT prophylaxis: SCDs only. No anticoag given because of liver cancer. History Interval history: Patient is 67 yo with hepatocellular cancer, sent in from SNF for altered mental status, More responsive today Hospitalist Physical - Physical exam Narrative exam: General: Not in acute distress, malnourished HEENT:Normocephalic, atraumatic Neck:supple,no JVD Lungs: Clear to auscultation bilaterally, no crackles, no wheeze Heart:S1 and S2 regular tachycardia, no murmurs, rubs or gallop Abd: soft, non tender, non distended, normal bowel sounds Ext: No edema, no clubbing, no cyanosis Neuro: Lethargic, more responsive, calm, moves all ext. - Constitutional Vitals: Temp Pulse Resp BP Pulse Ox 97.7 F 73 22 115/52 98 10/08/17 13:15 10/08/17 10:00 10/08/17 13:15 10/08/17 13:15 10/08/17 10:00 General appearance: Present: cachectic Results - Labs CBC & Chem 7: 10/08/17 05:27 10/08/17 05:27 Labs: Laboratory Last Values WBC 11.9 K/mm3 (4.5-11.0) H 10/08/17 05:27 RBC 4.12 M/mm3 (3.65-5.03) 10/08/17 05:27 Hgb 12.4 gm/dl (11.8-15.2) 10/08/17 05:27 Hct 37.6 % (35.5-45.6) 10/08/17 05:27 MCV 91 fl (84-94) 10/08/17 05:27 MCH 30 pg (28-32) 10/08/17 05:27 MCHC 33 % (32-34) 10/08/17 05:27 RDW 14.8 % (13.2-15.2) 10/08/17 05: Plt Count 185 K/mm3 (140-440) 10/08/17 05:27 Lymph % (Auto) 14.3 % (13.4-35.0) 10/06/17 18:24 [place] % (Auto) 6.6 % (0.0-7.3) 10/06/17 18:24 Eos % (Auto) 0.0 % (0.0-4.3) 10/06/17 18:24 Baso % (Auto) 0.8 % (0.0-1.8) 10/06/17 18:24 Lymph # 1.1 K/mm3 (1.2-5.4) L 10/06/17 18:24 [place] # 0.5 K/mm3 (0.0-0.8) 10/06/17 18: Eos # 0.0 K/mm3 (0.0-0.4) 10/06/17 18: Baso # 0.1 K/mm3 (0.0-0.1) 10/06/17 18: Seg Neutrophils % 78.3 % (40.0-70.0) H 10/06/17 18: Seg Neutrophils # 5.8 K/mm3 (1.8-7.7) 10/06/17 18: PT 15.7 Sec. (12.2-14.9) H 10/06/17 18:24 INR 1.18 (0.87-1.13) H 10/06/17 18:24 POC ABG pH 7.396 (7.35-7.45) 10/06/17 18:20 POC ABG pCO2 22.2 (35-45) L 10/06/17 18:20 POC ABG pO2 170 (80-105) H 10/06/17 18:20 POC ABG HCO3 13.6 10/06/17 18:20 POC ABG Total CO2 14 10/06/17 18:20 POC ABG O2 Sat 100 10/06/17 18:20 POC ABG Base Excess -11 10/06/17 18:20 FiO2 85 % 10/06/17 18:20 Sodium 154 mmol/L (137-145) H 10/08/17 05: Potassium 3.5 mmol/L (3.6-5.0) L 10/08/17 05:27 Chloride 119.2 mmol/L (98-107) H 10/08/17 05:27 Carbon Dioxide 20 mmol/L (22-30) L 10/08/17 05:27 Anion Gap 18 mmol/L 10/08/17 05:27 BUN 23 mg/dL (9-20) H 10/08/17 05:27 Creatinine 0.6 mg/dL (0.8-1.5) L 10/08/17 05:27 Estimated GFR > 60 ml/min 10/08/17 05:27 BUN/Creatinine Ratio 38 % 10/08/17 05:27 Glucose 118 mg/dL (75-100) H 10/08/17 05:27 POC Glucose 146 (70-105) H 10/08/17 07:15 Ketones Quantitative Negative (Negative) 10/06/17 Unknown Lactic Acid 3.10 mmol/L (0.7-2.0) H* 10/07/17 Unknown Calcium 8.5 mg/dL (8.4-10.2) 10/08/17 05:27 Phosphorus 4.60 mg/dL (2.5-4.5) H 10/06/17 19:37 Magnesium 2.20 mg/dL (1.7-2.3) 10/06/17 19:37 Total Bilirubin 1.10 mg/dL (0.1-1.2) 10/07/17 09:29 Direct Bilirubin 0.3 mg/dL (0-0.2) H 10/07/17 09:29 Indirect Bilirubin 0.8 mg/dL 10/07/17 09:29 AST 53 units/L (5-40) H 10/07/17 09:29 ALT 40 units/L (7-56) 10/07/17 09:29 Alkaline Phosphatase 231 units/L (35-129) H 10/07/17 09:29 Ammonia 90.0 umol/L (25-60) H 10/08/17 05:27 Troponin T 0.011 ng/mL (0.00-0.029) 10/06/17 18:24 NT-Pro-B Natriuret Pep 258.8 pg/mL (0-900) 10/06/17 18:24 Total Protein 8.4 g/dL (6.3-8.2) H 10/07/17 09:29 Albumin 2.3 g/dL (3.9-5) L 10/07/17 09:29 Albumin/Globulin Ratio 0.4 % 10/07/17 09:29 Urine Color Yellow (Yellow) 10/07/17 17:37 Urine Turbidity Clear (Clear) 10/07/17 17:37 Urine pH 5.0 (5.0-7.0) 10/07/17 17:37 Ur Specific [place] 1.026 (1.003-1.030) 10/07/17 17:37 Urine Protein 30 mg/dl mg/dL (Negative) 10/07/17 17:37 Urine Glucose (UA) 50 mg/dL (Negative) 10/07/17 17:37 Urine Ketones Neg mg/dL (Negative) 10/07/17 17:37 Urine Blood Lg (Negative) 10/07/17 17:37 Urine Nitrite Neg (Negative) 10/07/17 17:37 Urine Bilirubin Neg (Negative) 10/07/17 17:37 Urine Urobilinogen 2.0 mg/dL (<2.0) 10/07/17 17:37 Ur Leukocyte Esterase Neg (Negative) 10/07/17 17:37 Urine WBC (Auto) 4.0 /HPF (0.0-6.0) 10/07/17 17:37 Urine RBC (Auto) 124.0 /HPF (0.0-6.0) 10/07/17 17:37 Urine Mucus Few /HPF 10/07/17 17:37
[2017-10-08] MEDS: NACL 0.45% 500 ML IV SCH (17:53)
[2017-10-08] MEDS: SODIUM CHLORIDE FLUSH SYRINGE 10 ML IV SCH (18:02)
[2017-10-09 05:31] LABS: Hematocrit 41.3 % (35.5-45.6); Hemoglobin 13.5 gm/dl (11.8-15.2); Mean Corpuscular HGB Conc 33 % (32-34); Mean Corpuscular Hemoglobin 30 pg (28-32); Mean Corpuscular Volume 92 fl (84-94); Platelet Count 192 K/mm3 (140-440); Red Blood Count 4.47 M/mm3 (3.65-5.03)
[2017-10-09 05:48] LABS: BUN/Creatinine Ratio 44; Blood Urea Nitrogen 22 mg/dL (9-20); Calcium 8.5 mg/dL (8.4-10.2); Hemolysis Index 91
[2017-10-09] MEDS: POTASSIUM CHLORIDE FEEDTUBE SCH (09:03)
[2017-10-09] MEDS: SODIUM CHLORIDE FLUSH SYRINGE 10 ML IV SCH ×2 (09:04→22:06)
[2017-10-09] MEDS: NACL 0.45% 500 ML IV SCH (10:52)
[2017-10-09] MEDS: VANCOMYCIN 750 MG in NACL 0.9% 250ML 250 ML IV SCH ×2 (12:06)
[2017-10-09] MEDS: CEPHULAC PO SCH ×3 (12:07→17:19)
--- NOTE | 2017-10-09 12:52 | Progress Note ---
Assessment and Plan Assessment and plan: Sepsis syndrome On Zosyn and vancomycin. Blood cultures drawn Hepatic encephalopathy. Ammonia level is improving. Ammonia 64 today from 611 on admission Consulted GI, he was evaluated Recheck Ammonia level in am Diabetic ketoacidosis he is now off Insulin drip. Hypernatremia. Improving Repeat BMP daily Continue 0.45NS Hypokalemia. Will replete and recheck. Lactic acidosis due to Sepsis Right humerus fracture, s/p sling Malnutrition. Consult [employer] DVT prophylaxis: SCDs only. No anticoag given because of liver cancer. History Interval history: Patient is 67 yo with hepatocellular cancer, sent in from SNF for altered mental status, Now awake less confused Hospitalist Physical - Physical exam Narrative exam: General: Not in acute distress, malnourished HEENT:Normocephalic, atraumatic Neck:supple,no JVD Lungs: Clear to auscultation bilaterally, no crackles, no wheeze Heart:S1 and S2 regular tachycardia, no murmurs, rubs or gallop Abd: soft, non tender, non distended, normal bowel sounds Ext: No edema, no clubbing, no cyanosis Neuro: Awake, drowsy,more responsive, less confused, moves all ext. - Constitutional Vitals: Temp Pulse Resp BP Pulse Ox 97.6 F 58 L 18 105/50 100 10/09/17 04:21 10/09/17 10:00 10/09/17 10:00 10/09/17 04:21 10/09/17 10:00 General appearance: Present: cachectic Results - Labs CBC & Chem 7: 10/09/17 04:58 10/09/17 04:58 Labs: Laboratory Last Values WBC 10.9 K/mm3 (4.5-11.0) 10/09/17 04:58 RBC 4.47 M/mm3 (3.65-5.03) 10/09/17 04:58 Hgb 13.5 gm/dl (11.8-15.2) 10/09/17 04:58 Hct 41.3 % (35.5-45.6) 10/09/17 04:58 MCV 92 fl (84-94) 10/09/17 04:58 MCH 30 pg (28-32) 10/09/17 04:58 MCHC 33 % (32-34) 10/09/17 04:58 RDW 15.0 % (13.2-15.2) 10/09/17 04:58 Plt Count 192 K/mm3 (140-440) 10/09/17 04:58 Lymph % (Auto) 14.3 % (13.4-35.0) 10/06/17 18:24 Dawson % (Auto) 6.6 % (0.0-7.3) 10/06/17 18:24 Eos % (Auto) 0.0 % (0.0-4.3) 10/06/17 18:24 Baso % (Auto) 0.8 % (0.0-1.8) 10/06/17 18:24 Lymph # 1.1 K/mm3 (1.2-5.4) L 10/06/17 18:24 Dawson # 0.5 K/mm3 (0.0-0.8) 10/06/17 18:24 Eos # 0.0 K/mm3 (0.0-0.4) 10/06/17 18:24 Baso # 0.1 K/mm3 (0.0-0.1) 10/06/17 18:24 Seg Neutrophils % 78.3 % (40.0-70.0) H 10/06/17 18:24 Seg Neutrophils # 5.8 K/mm3 (1.8-7.7) 10/06/17 18:24 PT 15.7 Sec. (12.2-14.9) H 10/06/17 18:24 INR 1.18 (0.87-1.13) H 10/06/17 18:24 POC ABG pH 7.396 (7.35-7.45) 10/06/17 18:20 POC ABG pCO2 22.2 (35-45) L 10/06/17 18:20 POC ABG pO2 170 (80-105) H 10/06/17 18:20 POC ABG HCO3 13.6 10/06/17 18:20 POC ABG Total CO2 14 10/06/17 18:20 POC ABG O2 Sat 100 10/06/17 18:20 POC ABG Base Excess -11 10/06/17 18:20 FiO2 85 % 10/06/17 18:20 Sodium 152 mmol/L (137-145) H 10/09/17 04:58 Potassium 4.3 mmol/L (3.6-5.0) D 10/09/17 04:58 Chloride 116.4 mmol/L (98-107) H 10/09/17 04:58 Carbon Dioxide 21 mmol/L (22-30) L 10/09/17 04:58 Anion Gap 19 mmol/L 10/09/17 04:58 BUN 22 mg/dL (9-20) H 10/09/17 04:58 Creatinine 0.5 mg/dL (0.8-1.5) L 10/09/17 04:58 Estimated GFR > 60 ml/min 10/09/17 04:58 BUN/Creatinine Ratio 44 % 10/09/17 04:58 Glucose 181 mg/dL (75-100) H 10/09/17 04:58 POC Glucose 129 (70-105) H 10/09/17 10:31 Ketones Quantitative Negative (Negative) 10/06/17 Unknown Lactic Acid 3.10 mmol/L (0.7-2.0) H* 10/07/17 Unknown Calcium 8.5 mg/dL (8.4-10.2) 10/09/17 04:58 Phosphorus 4.60 mg/dL (2.5-4.5) H 10/06/17 19:37 Magnesium 2.20 mg/dL (1.7-2.3) 10/06/17 19:37 Total Bilirubin 1.10 mg/dL (0.1-1.2) 10/07/17 09:29 Direct Bilirubin 0.3 mg/dL (0-0.2) H 10/07/17 09:29 Indirect Bilirubin 0.8 mg/dL 10/07/17 09:29 AST 53 units/L (5-40) H 10/07/17 09:29 ALT 40 units/L (7-56) 10/07/17 09:29 Alkaline Phosphatase 231 units/L (35-129) H 10/07/17 09:29 Ammonia 64.0 umol/L (25-60) H 10/09/17 04:58 Troponin T 0.011 ng/mL (0.00-0.029) 10/06/17 18:24 NT-Pro-B Natriuret Pep 258.8 pg/mL (0-900) 10/06/17 18:24 Total Protein 8.4 g/dL (6.3-8.2) H 10/07/17 09:29 Albumin 2.3 g/dL (3.9-5) L 10/07/17 09:29 Albumin/Globulin Ratio 0.4 % 10/07/17 09:29 Urine Color Yellow (Yellow) 10/07/17 17:37 Urine Turbidity Clear (Clear) 10/07/17 17:37 Urine pH 5.0 (5.0-7.0) 10/07/17 17:37 Ur Specific [place] 1.026 (1.003-1.030) 10/07/17 17:37 Urine Protein 30 mg/dl mg/dL (Negative) 10/07/17 17:37 Urine Glucose (UA) 50 mg/dL (Negative) 10/07/17 17:37 Urine Ketones Neg mg/dL (Negative) 10/07/17 17:37 Urine Blood Lg (Negative) 10/07/17 17:37 Urine Nitrite Neg (Negative) 10/07/17 17:37 Urine Bilirubin Neg (Negative) 10/07/17 17:37 Urine Urobilinogen 2.0 mg/dL (<2.0) 10/07/17 17:37 Ur Leukocyte Esterase Neg (Negative) 10/07/17 17:37 Urine WBC (Auto) 4.0 /HPF (0.0-6.0) 10/07/17 17:37 Urine RBC (Auto) 124.0 /HPF (0.0-6.0) 10/07/17 17:37 Urine Mucus Few /HPF 10/07/17 17:37
[2017-10-09] MEDS: ZOSYN/NS 3.375GM/50ML 3.375 GM/50 ML BAG IV SCH ×3 (13:46→22:05)
[2017-10-10] MEDS: VANCOMYCIN 750 MG in NACL 0.9% 250ML 250 ML IV SCH ×2 (00:27→13:20)
[2017-10-10] MEDS: CEPHULAC PO SCH ×4 (00:27→17:07)
[2017-10-10] MEDS: NACL 0.45% 500 ML IV SCH (02:33)
[2017-10-10] MEDS: ZOSYN/NS 3.375GM/50ML 3.375 GM/50 ML BAG IV SCH ×3 (06:05→22:07)
[2017-10-10 09:45] LABS: BUN/Creatinine Ratio 28; Blood Urea Nitrogen 14 mg/dL (9-20); Hemolysis Index 11
[2017-10-10] MEDS: POTASSIUM CHLORIDE FEEDTUBE SCH (10:06)
[2017-10-10] MEDS: SODIUM CHLORIDE FLUSH SYRINGE 10 ML IV SCH ×2 (10:08→22:09)
[2017-10-10] MEDS: D5W 1,000 ML IV SCH (10:33)
--- NOTE | 2017-10-10 12:11 | Progress Note ---
Assessment and Plan Assessment and plan: Sepsis syndrome On Zosyn and vancomycin. Blood cultures drawn Hepatic encephalopathy. Ammonia level is improving. Ammonia 75 today from 611 on admission Consulted GI, he was evaluated Recheck Ammonia level in am Diabetic ketoacidosis he is now off Insulin drip. Hypernatremia. Improving Repeat BMP daily Change ivf to D5W Hypokalemia. Will replete and recheck. Lactic acidosis due to Sepsis Right humerus fracture, s/p sling Malnutrition. Consult Analyst Market Intelligence DVT prophylaxis: SCDs only. No anticoag given because of liver cancer. History Interval history: Patient is 67 yo with hepatocellular cancer, sent in from SNF for altered mental status, Now awake less confused Hospitalist Physical - Physical exam Narrative exam: General: Not in acute distress, malnourished HEENT:Normocephalic, atraumatic Neck:supple,no JVD Lungs: Clear to auscultation bilaterally, no crackles, no wheeze Heart:S1 and S2 regular tachycardia, no murmurs, rubs or gallop Abd: soft, non tender, non distended, normal bowel sounds Ext: No edema, no clubbing, no cyanosis Neuro: Awake, drowsy,more responsive, less confused, moves all ext. - Constitutional Vitals: Temp Pulse Resp BP Pulse Ox 97.4 F L 57 L 20 126/61 98 10/10/17 09:16 10/10/17 09:16 10/10/17 09:16 10/10/17 09:16 10/10/17 10:00 General appearance: Present: cachectic Results - Labs CBC & Chem 7: 10/09/17 04:58 10/10/17 23:22 Labs: Laboratory Last Values WBC 10.9 K/mm3 (4.5-11.0) 10/09/17 04:58 RBC 4.47 M/mm3 (3.65-5.03) 10/09/17 04:58 Hgb 13.5 gm/dl (11.8-15.2) 10/09/17 04:58 Hct 41.3 % (35.5-45.6) 10/09/17 04:58 MCV 92 fl (84-94) 10/09/17 04:58 MCH 30 pg (28-32) 10/09/17 04:58 MCHC 33 % (32-34) 10/09/17 04:58 RDW 15.0 % (13.2-15.2) 10/09/17 04:58 Plt Count 192 K/mm3 (140-440) 10/09/17 04:58 Lymph % (Auto) 14.3 % (13.4-35.0) 10/06/17 18:24 [place] % (Auto) 6.6 % (0.0-7.3) 10/06/17 18:24 Eos % (Auto) 0.0 % (0.0-4.3) 10/06/17 18:24 Baso % (Auto) 0.8 % (0.0-1.8) 10/06/17 18:24 Lymph # 1.1 K/mm3 (1.2-5.4) L 10/06/17 18:24 [place] # 0.5 K/mm3 (0.0-0.8) 10/06/17 18:24 Eos # 0.0 K/mm3 (0.0-0.4) 10/06/17 18:24 Baso # 0.1 K/mm3 (0.0-0.1) 10/06/17 18:24 Seg Neutrophils % 78.3 % (40.0-70.0) H 10/06/17 18:24 Seg Neutrophils # 5.8 K/mm3 (1.8-7.7) 10/06/17 18:24 PT 15.7 Sec. (12.2-14.9) H 10/06/17 18:24 INR 1.18 (0.87-1.13) H 10/06/17 18:24 POC ABG pH 7.396 (7.35-7.45) 10/06/17 18:20 POC ABG pCO2 22.2 (35-45) L 10/06/17 18:20 POC ABG pO2 170 (80-105) H 10/06/17 18:20 POC ABG HCO3 13.6 10/06/17 18:20 POC ABG Total CO2 14 10/06/17 18:20 POC ABG O2 Sat 100 10/06/17 18:20 POC ABG Base Excess -11 10/06/17 18:20 FiO2 85 % 10/06/17 18:20 Sodium 162 mmol/L (137-145) H* D 10/10/17 09:08 Potassium 3.6 mmol/L (3.6-5.0) 10/10/17 09:08 Chloride 131.7 mmol/L (98-107) H 10/10/17 09:08 Carbon Dioxide 18 mmol/L (22-30) L 10/10/17 09:08 Anion Gap 16 mmol/L 10/10/17 09:08 BUN 14 mg/dL (9-20) 10/10/17 09:08 Creatinine 0.5 mg/dL (0.8-1.5) L 10/10/17 09:08 Estimated GFR > 60 ml/min 10/10/17 09:08 BUN/Creatinine Ratio 28 % 10/10/17 09:08 Glucose 133 mg/dL (75-100) H 10/10/17 09:08 POC Glucose 136 (70-105) H 10/10/17 07:30 Ketones Quantitative Negative (Negative) 10/06/17 Unknown Lactic Acid 3.10 mmol/L (0.7-2.0) H* 10/07/17 Unknown Calcium 8.0 mg/dL (8.4-10.2) L 10/10/17 09:08 Phosphorus 4.60 mg/dL (2.5-4.5) H 10/06/17 19:37 Magnesium 2.20 mg/dL (1.7-2.3) 10/06/17 19:37 Total Bilirubin 1.10 mg/dL (0.1-1.2) 10/07/17 09:29 Direct Bilirubin 0.3 mg/dL (0-0.2) H 10/07/17 09:29 Indirect Bilirubin 0.8 mg/dL 10/07/17 09:29 AST 53 units/L (5-40) H 10/07/17 09:29 ALT 40 units/L (7-56) 10/07/17 09:29 Alkaline Phosphatase 231 units/L (35-129) H 10/07/17 09:29 Ammonia 75.0 umol/L (25-60) H 10/10/17 05:24 Troponin T 0.011 ng/mL (0.00-0.029) 10/06/17 18:24 NT-Pro-B Natriuret Pep 258.8 pg/mL (0-900) 10/06/17 18:24 Total Protein 8.4 g/dL (6.3-8.2) H 10/07/17 09:29 Albumin 2.3 g/dL (3.9-5) L 10/07/17 09:29 Albumin/Globulin Ratio 0.4 % 10/07/17 09:29 Urine Color Yellow (Yellow) 10/07/17 17:37 Urine Turbidity Clear (Clear) 10/07/17 17:37 Urine pH 5.0 (5.0-7.0) 10/07/17 17:37 Ur Specific [place] 1.026 (1.003-1.030) 10/07/17 17:37 Urine Protein 30 mg/dl mg/dL (Negative) 10/07/17 17:37 Urine Glucose (UA) 50 mg/dL (Negative) 10/07/17 17:37 Urine Ketones Neg mg/dL (Negative) 10/07/17 17:37 Urine Blood Lg (Negative) 10/07/17 17:37 Urine Nitrite Neg (Negative) 10/07/17 17:37 Urine Bilirubin Neg (Negative) 10/07/17 17:37 Urine Urobilinogen 2.0 mg/dL (<2.0) 10/07/17 17:37 Ur Leukocyte Esterase Neg (Negative) 10/07/17 17:37 Urine WBC (Auto) 4.0 /HPF (0.0-6.0) 10/07/17 17:37 Urine RBC (Auto) 124.0 /HPF (0.0-6.0) 10/07/17 17:37 Urine Mucus Few /HPF 10/07/17 17:37
[2017-10-10] MEDS: VANCOMYCIN VIAL 500 MG in NACL 0.9% 100 ML IV SCH (22:14)
[2017-10-11 00:03] LABS: BUN/Creatinine Ratio 20; Blood Urea Nitrogen 12 mg/dL (9-20); Calcium 7.8 mg/dL (8.4-10.2); Hemolysis Index 288
[2017-10-11] MEDS: CEPHULAC PO SCH ×5 (00:04→23:05)
[2017-10-11] MEDS: D5W 1,000 ML IV SCH (00:12)
[2017-10-11] MEDS ORDERED: SODIUM BICARBONATE IV ONE (00:29)
[2017-10-11] MEDS: VANCOMYCIN VIAL 500 MG in NACL 0.9% 100 ML IV SCH ×3 (05:04→23:02)
[2017-10-11 05:25] LABS: BUN/Creatinine Ratio 23; Blood Urea Nitrogen 9 mg/dL (9-20); Calcium 7.5 mg/dL (8.4-10.2); Hemolysis Index 4
[2017-10-11] MEDS: ZOSYN/NS 3.375GM/50ML 3.375 GM/50 ML BAG IV SCH ×3 (06:03→23:02)
[2017-10-11] MEDS: SODIUM CHLORIDE FLUSH SYRINGE 10 ML IV SCH ×3 (08:40→23:04)
--- NOTE | 2017-10-11 13:50 | Progress Note ---
Assessment and Plan Assessment and plan: Sepsis syndrome On Zosyn and vancomycin. Blood cultures drawn, no growth Hepatic encephalopathy. Ammonia level is improving. Ammonia 75 today from 611 on admission Increase dose of Consulted GI, he was evaluated Recheck Ammonia level in am Diabetic ketoacidosis he is now off Insulin drip. Hypernatremia. resolved. dc iv fluid Hypokalemia. Will replete and recheck. Lactic acidosis due to Sepsis Right humerus fracture, s/p sling Malnutrition. Consult Insert Cutter DVT prophylaxis: SCDs only. No anticoag given because of liver cancer. patient stable to dc but cannot go because its public holiday History Interval history: Patient is 67 yo with hepatocellular cancer, sent in from SNF for altered mental status, Now fully awake Hospitalist Physical - Physical exam Narrative exam: General: Not in acute distress, malnourished HEENT:Normocephalic, atraumatic Neck:supple,no JVD Lungs: Clear to auscultation bilaterally, no crackles, no wheeze Heart:S1 and S2 regular tachycardia, no murmurs, rubs or gallop Abd: soft, non tender, non distended, normal bowel sounds Ext: No edema, no clubbing, no cyanosis Neuro: Awake, alert, less confused, moves all ext. - Constitutional Vitals: Temp Pulse Resp BP Pulse Ox 97.5 F L 68 20 115/70 93 10/11/17 07:18 10/11/17 10:00 10/11/17 07:18 10/11/17 07:18 10/11/17 09:18 General appearance: Present: cachectic Results - Labs CBC & Chem 7: 10/09/17 04:58 10/11/17 04:35 Labs: Laboratory Last Values WBC 10.9 K/mm3 (4.5-11.0) 10/09/17 04:58 RBC 4.47 M/mm3 (3.65-5.03) 10/09/17 04:58 Hgb 13.5 gm/dl (11.8-15.2) 10/09/17 04:58 Hct 41.3 % (35.5-45.6) 10/09/17 04:58 MCV 92 fl (84-94) 10/09/17 04:58 MCH 30 pg (28-32) 10/09/17 04:58 MCHC 33 % (32-34) 10/09/17 04:58 RDW 15.0 % (13.2-15.2) 10/09/17 04:58 Plt Count 192 K/mm3 (140-440) 10/09/17 04:58 Lymph % (Auto) 14.3 % (13.4-35.0) 10/06/17 18:24 [place] % (Auto) 6.6 % (0.0-7.3) 10/06/17 18:24 Eos % (Auto) 0.0 % (0.0-4.3) 10/06/17 18:24 Baso % (Auto) 0.8 % (0.0-1.8) 10/06/17 18:24 Lymph # 1.1 K/mm3 (1.2-5.4) L 10/06/17 18:24 [place] # 0.5 K/mm3 (0.0-0.8) 10/06/17 18:24 Eos # 0.0 K/mm3 (0.0-0.4) 10/06/17 18:24 Baso # 0.1 K/mm3 (0.0-0.1) 10/06/17 18:24 Seg Neutrophils % 78.3 % (40.0-70.0) H 10/06/17 18:24 Seg Neutrophils # 5.8 K/mm3 (1.8-7.7) 10/06/17 18:24 PT 15.7 Sec. (12.2-14.9) H 10/06/17 18:24 INR 1.18 (0.87-1.13) H 10/06/17 18:24 POC ABG pH 7.396 (7.35-7.45) 10/06/17 18:20 POC ABG pCO2 22.2 (35-45) L 10/06/17 18:20 POC ABG pO2 170 (80-105) H 10/06/17 18:20 POC ABG HCO3 13.6 10/06/17 18:20 POC ABG Total CO2 14 10/06/17 18:20 POC ABG O2 Sat 100 10/06/17 18:20 POC ABG Base Excess -11 10/06/17 18:20 FiO2 85 % 10/06/17 18:20 Sodium 140 mmol/L (137-145) 10/11/17 04:35 Potassium 3.3 mmol/L (3.6-5.0) L D 10/11/17 04:35 Chloride 104.7 mmol/L (98-107) 10/11/17 04:35 Carbon Dioxide 20 mmol/L (22-30) L 10/11/17 04:35 Anion Gap 19 mmol/L 10/11/17 04:35 BUN 9 mg/dL (9-20) 10/11/17 04:35 Creatinine 0.4 mg/dL (0.8-1.5) L 10/11/17 04:35 Estimated GFR > 60 ml/min 10/11/17 04:35 BUN/Creatinine Ratio 23 % 10/11/17 04:35 Glucose 210 mg/dL (75-100) H 10/11/17 04:35 POC Glucose 223 (70-105) H 10/11/17 11:34 Ketones Quantitative Negative (Negative) 10/06/17 Unknown Lactic Acid 3.10 mmol/L (0.7-2.0) H* 10/07/17 Unknown Calcium 7.5 mg/dL (8.4-10.2) L 10/11/17 04:35 Phosphorus 4.60 mg/dL (2.5-4.5) H 10/06/17 19:37 Magnesium 2.20 mg/dL (1.7-2.3) 10/06/17 19:37 Total Bilirubin 1.10 mg/dL (0.1-1.2) 10/07/17 09:29 Direct Bilirubin 0.3 mg/dL (0-0.2) H 10/07/17 09:29 Indirect Bilirubin 0.8 mg/dL 10/07/17 09:29 AST 53 units/L (5-40) H 10/07/17 09:29 ALT 40 units/L (7-56) 10/07/17 09:29 Alkaline Phosphatase 231 units/L (35-129) H 10/07/17 09:29 Ammonia 75.0 umol/L (25-60) H 10/11/17 04:35 Troponin T 0.011 ng/mL (0.00-0.029) 10/06/17 18:24 NT-Pro-B Natriuret Pep 258.8 pg/mL (0-900) 10/06/17 18:24 Total Protein 8.4 g/dL (6.3-8.2) H 10/07/17 09:29 Albumin 2.3 g/dL (3.9-5) L 10/07/17 09:29 Albumin/Globulin Ratio 0.4 % 10/07/17 09:29 Urine Color Yellow (Yellow) 10/07/17 17:37 Urine Turbidity Clear (Clear) 10/07/17 17:37 Urine pH 5.0 (5.0-7.0) 10/07/17 17:37 Ur Specific [place] 1.026 (1.003-1.030) 10/07/17 17:37 Urine Protein 30 mg/dl mg/dL (Negative) 10/07/17 17:37 Urine Glucose (UA) 50 mg/dL (Negative) 10/07/17 17:37 Urine Ketones Neg mg/dL (Negative) 10/07/17 17:37 Urine Blood Lg (Negative) 10/07/17 17:37 Urine Nitrite Neg (Negative) 10/07/17 17:37 Urine Bilirubin Neg (Negative) 10/07/17 17:37 Urine Urobilinogen 2.0 mg/dL (<2.0) 10/07/17 17:37 Ur Leukocyte Esterase Neg (Negative) 10/07/17 17:37 Urine WBC (Auto) 4.0 /HPF (0.0-6.0) 10/07/17 17:37 Urine RBC (Auto) 124.0 /HPF (0.0-6.0) 10/07/17 17:37 Urine Mucus Few /HPF 10/07/17 17:37 Vancomycin Trough 12.8 ug/mL (5.0-20.0) 10/10/17 12:37
[2017-10-11] MEDS: PROVENTIL IH PRN (20:28)
[2017-10-11] MEDS ORDERED: K-DUR PO ONE (21:53)
[2017-10-12] MEDS: ZOSYN/NS 3.375GM/50ML 3.375 GM/50 ML BAG IV SCH (05:46)
[2017-10-12] MEDS: CEPHULAC PO SCH ×4 (05:47→23:13)
[2017-10-12] MEDS: VANCOMYCIN VIAL 500 MG in NACL 0.9% 100 ML IV SCH (05:50)
--- NOTE | 2017-10-12 08:00 | Discharge Summary ---
Providers - Providers Date of Admission: 10/06/17 23:51 Date of discharge: 10/12/17 Attending physician: THERON RAMIREZ 10/07/17 10:18 Consult to Physician [CONS] Routine Comment: YARON Starr NOTIFIED [id number] Consulting Provider: NAILA PALMER Physician Instructions: Reason For Exam: hepatic encephalopathy Primary care physician: POLY COOPER MD Hospitalization Condition: Fair Disposition: DC/[place]-03 SNF W [facility] CERT Core Measure Documentation - Palliative Care Palliative Care/ Comfort Measures: Not Applicable - Core Measures Any of the following diagnoses?: none Exam - Constitutional Vitals: Temp Pulse Resp BP Pulse Ox 98.0 F 59 L 20 119/69 94 10/12/17 07:15 10/11/17 23:29 10/12/17 07:15 10/12/17 07:15 10/11/17 23:29 Plan Activity: advance as tolerated Diet: other (soft,diabetic) Additional Instructions: 1.Follow up with Physician at SNF in 2-3 days. 2.Check Ammonia level in 1 week, to be followed by Physician at SNF Follow up with: PRIMARY CARE, [Primary Care Provider] - 3-5 Days Prescriptions: Lactulose [Cephulac] 20 gm PO Q6HR 14 Days oral.[email or web address]
[2017-10-12] MEDS: SODIUM CHLORIDE FLUSH SYRINGE 10 ML IV SCH ×2 (09:01→22:18)
[2017-10-12] MEDS: ZOFRAN IV PRN (22:17)
--- NOTE | 2017-10-13 00:28 | Progress Note ---
Assessment and Plan Assessment and plan: Sepsis syndrome On Zosyn and vancomycin. Blood cultures drawn, no growth Hepatic encephalopathy. Ammonia level is improving. Ammonia 136 yoday, higher than yesterday, was 75 Consulted GI, he was evaluated Recheck Ammonia level in am Diabetic ketoacidosis, resolved he is now off Insulin drip. Hypernatremia. resolved. dc iv fluid Hypokalemia. Will replete and recheck. Lactic acidosis due to Sepsis Right humerus fracture, s/p sling Malnutrition. Consult Waiter/Waitress Formal DVT prophylaxis: SCDs only. No anticoag given because of liver cancer. History Interval history: Patient is 67 yo with hepatocellular cancer, sent in from SNF for altered mental status, Now fully awake Hospitalist Physical - Physical exam Narrative exam: General: Not in acute distress, malnourished HEENT:Normocephalic, atraumatic Neck:supple,no JVD Lungs: Clear to auscultation bilaterally, no crackles, no wheeze Heart:S1 and S2 regular tachycardia, no murmurs, rubs or gallop Abd: soft, non tender, non distended, normal bowel sounds Ext: No edema, no clubbing, no cyanosis Neuro: Awake, alert, moves all ext. - Constitutional Vitals: Temp Pulse Resp BP Pulse Ox 97.9 F 70 18 133/69 96 10/12/17 19:22 10/12/17 19:22 10/12/17 19:22 10/12/17 19:22 10/12/17 20:55 General appearance: Present: cachectic Results - Labs CBC & Chem 7: 10/17/17 10:37 10/17/17 10:37 Labs: Laboratory Last Values WBC 10.9 K/mm3 (4.5-11.0) 10/09/17 04:58 RBC 4.47 M/mm3 (3.65-5.03) 10/09/17 04:58 Hgb 13.5 gm/dl (11.8-15.2) 10/09/17 04:58 Hct 41.3 % (35.5-45.6) 10/09/17 04:58 MCV 92 fl (84-94) 10/09/17 04:58 MCH 30 pg (28-32) 10/09/17 04:58 MCHC 33 % (32-34) 10/09/17 04:58 RDW 15.0 % (13.2-15.2) 10/09/17 04:58 Plt Count 192 K/mm3 (140-440) 10/09/17 04:58 Lymph % (Auto) 14.3 % (13.4-35.0) 10/06/17 18:24 [place] % (Auto) 6.6 % (0.0-7.3) 10/06/17 18:24 Eos % (Auto) 0.0 % (0.0-4.3) 10/06/17 18:24 Baso % (Auto) 0.8 % (0.0-1.8) 10/06/17 18:24 Lymph # 1.1 K/mm3 (1.2-5.4) L 10/06/17 18:24 [place] # 0.5 K/mm3 (0.0-0.8) 10/06/17 18:24 Eos # 0.0 K/mm3 (0.0-0.4) 10/06/17 18:24 Baso # 0.1 K/mm3 (0.0-0.1) 10/06/17 18:24 Seg Neutrophils % 78.3 % (40.0-70.0) H 10/06/17 18:24 Seg Neutrophils # 5.8 K/mm3 (1.8-7.7) 10/06/17 18:24 PT 15.7 Sec. (12.2-14.9) H 10/06/17 18:24 INR 1.18 (0.87-1.13) H 10/06/17 18:24 POC ABG pH 7.396 (7.35-7.45) 10/06/17 18:20 POC ABG pCO2 22.2 (35-45) L 10/06/17 18:20 POC ABG pO2 170 (80-105) H 10/06/17 18:20 POC ABG HCO3 13.6 10/06/17 18:20 POC ABG Total CO2 14 10/06/17 18:20 POC ABG O2 Sat 100 10/06/17 18:20 POC ABG Base Excess -11 10/06/17 18:20 FiO2 85 % 10/06/17 18:20 Sodium 140 mmol/L (137-145) 10/11/17 04:35 Potassium 3.6 mmol/L (3.6-5.0) 10/12/17 05:25 Chloride 104.7 mmol/L (98-107) 10/11/17 04:35 Carbon Dioxide 20 mmol/L (22-30) L 10/11/17 04:35 Anion Gap 19 mmol/L 10/11/17 04:35 BUN 9 mg/dL (9-20) 10/11/17 04:35 Creatinine 0.4 mg/dL (0.8-1.5) L 10/11/17 04:35 Estimated GFR > 60 ml/min 10/11/17 04:35 BUN/Creatinine Ratio 23 % 10/11/17 04:35 Glucose 210 mg/dL (75-100) H 10/11/17 04:35 POC Glucose 113 (70-105) H 10/12/17 22:23 Ketones Quantitative Negative (Negative) 10/06/17 Unknown Lactic Acid 3.10 mmol/L (0.7-2.0) H* 10/07/17 Unknown Calcium 7.5 mg/dL (8.4-10.2) L 10/11/17 04:35 Phosphorus 4.60 mg/dL (2.5-4.5) H 10/06/17 19:37 Magnesium 2.20 mg/dL (1.7-2.3) 10/06/17 19:37 Total Bilirubin 1.10 mg/dL (0.1-1.2) 10/07/17 09:29 Direct Bilirubin 0.3 mg/dL (0-0.2) H 10/07/17 09:29 Indirect Bilirubin 0.8 mg/dL 10/07/17 09:29 AST 53 units/L (5-40) H 10/07/17 09:29 ALT 40 units/L (7-56) 10/07/17 09:29 Alkaline Phosphatase 231 units/L (35-129) H 10/07/17 09:29 Ammonia 136.0 umol/L (25-60) H 10/12/17 15:28 Troponin T 0.011 ng/mL (0.00-0.029) 10/06/17 18:24 NT-Pro-B Natriuret Pep 258.8 pg/mL (0-900) 10/06/17 18:24 Total Protein 8.4 g/dL (6.3-8.2) H 10/07/17 09:29 Albumin 2.3 g/dL (3.9-5) L 10/07/17 09:29 Albumin/Globulin Ratio 0.4 % 10/07/17 09:29 Urine Color Yellow (Yellow) 10/07/17 17:37 Urine Turbidity Clear (Clear) 10/07/17 17:37 Urine pH 5.0 (5.0-7.0) 10/07/17 17:37 Ur Specific [place] 1.026 (1.003-1.030) 10/07/17 17:37 Urine Protein 30 mg/dl mg/dL (Negative) 10/07/17 17:37 Urine Glucose (UA) 50 mg/dL (Negative) 10/07/17 17:37 Urine Ketones Neg mg/dL (Negative) 10/07/17 17:37 Urine Blood Lg (Negative) 10/07/17 17:37 Urine Nitrite Neg (Negative) 10/07/17 17:37 Urine Bilirubin Neg (Negative) 10/07/17 17:37 Urine Urobilinogen 2.0 mg/dL (<2.0) 10/07/17 17:37 Ur Leukocyte Esterase Neg (Negative) 10/07/17 17:37 Urine WBC (Auto) 4.0 /HPF (0.0-6.0) 10/07/17 17:37 Urine RBC (Auto) 124.0 /HPF (0.0-6.0) 10/07/17 17:37 Urine Mucus Few /HPF 10/07/17 17:37 Vancomycin Trough 12.8 ug/mL (5.0-20.0) 10/10/17 12:37
[2017-10-13] MEDS: CEPHULAC PO SCH ×3 (05:48→17:11)
[2017-10-13] MEDS: SODIUM CHLORIDE FLUSH SYRINGE 10 ML IV SCH ×2 (09:35→22:19)
--- NOTE | 2017-10-13 10:20 | Progress Note ---
Assessment and Plan Assessment and plan: Sepsis syndrome On Zosyn and vancomycin. Blood cultures drawn, no growth Hepatic encephalopathy. Ammonia level is improving but remains elevated Continue lactulose Recheck Ammonia level in am Diabetic ketoacidosis Resolved. Hypernatremia. resolved. dc iv fluid Hypokalemia. Will replete and recheck. Right humerus fracture, s/p sling Malnutrition. Continue nutritional support DVT prophylaxis: SCDs only. No anticoag given because of liver cancer. History Interval history: Patient is somnolent and confused this morning Hospitalist Physical - Constitutional Vitals: Temp Pulse Resp BP Pulse Ox 97.8 F 70 20 119/54 98 10/13/17 07:18 10/13/17 02:10 10/13/17 07:18 10/13/17 07:18 10/13/17 02:10 General appearance: Present: cachectic - EENT Eyes: Present: PERRL, EOM intact ENT: hearing intact, clear oral mucosa, dentition normal - Neck Neck: Present: supple, normal ROM - Respiratory Respiratory effort: normal Respiratory: bilateral: CTA - Cardiovascular Rhythm: regular Heart Sounds: Present: S1 & S2. Absent: gallop, rub - Extremities Extremities: no ischemia, No edema, Full ROM - Abdominal General gastrointestinal: soft, non-tender, non-distended, normal bowel sounds - Integumentary Integumentary: Present: clear, warm, dry - Neurologic Neurologic: CNII-XII intact, moves all extremities Results - Labs CBC & Chem 7: 10/09/17 04:58 10/12/17 05:25 Labs: Laboratory Last Values WBC 10.9 K/mm3 (4.5-11.0) 10/09/17 04:58 RBC 4.47 M/mm3 (3.65-5.03) 10/09/17 04:58 Hgb 13.5 gm/dl (11.8-15.2) 10/09/17 04:58 Hct 41.3 % (35.5-45.6) 10/09/17 04:58 MCV 92 fl (84-94) 10/09/17 04:58 MCH 30 pg (28-32) 10/09/17 04:58 MCHC 33 % (32-34) 10/09/17 04:58 RDW 15.0 % (13.2-15.2) 10/09/17 04:58 Plt Count 192 K/mm3 (140-440) 10/09/17 04:58 Lymph % (Auto) 14.3 % (13.4-35.0) 10/06/17 18:24 [place] % (Auto) 6.6 % (0.0-7.3) 10/06/17 18:24 Eos % (Auto) 0.0 % (0.0-4.3) 10/06/17 18:24 Baso % (Auto) 0.8 % (0.0-1.8) 10/06/17 18:24 Lymph # 1.1 K/mm3 (1.2-5.4) L 10/06/17 18:24 [place] # 0.5 K/mm3 (0.0-0.8) 10/06/17 18:24 Eos # 0.0 K/mm3 (0.0-0.4) 10/06/17 18:24 Baso # 0.1 K/mm3 (0.0-0.1) 10/06/17 18:24 Seg Neutrophils % 78.3 % (40.0-70.0) H 10/06/17 18:24 Seg Neutrophils # 5.8 K/mm3 (1.8-7.7) 10/06/17 18:24 PT 15.7 Sec. (12.2-14.9) H 10/06/17 18:24 INR 1.18 (0.87-1.13) H 10/06/17 18:24 POC ABG pH 7.396 (7.35-7.45) 10/06/17 18:20 POC ABG pCO2 22.2 (35-45) L 10/06/17 18:20 POC ABG pO2 170 (80-105) H 10/06/17 18:20 POC ABG HCO3 13.6 10/06/17 18:20 POC ABG Total CO2 14 10/06/17 18:20 POC ABG O2 Sat 100 10/06/17 18:20 POC ABG Base Excess -11 10/06/17 18:20 FiO2 85 % 10/06/17 18:20 Sodium 140 mmol/L (137-145) 10/11/17 04:35 Potassium 3.6 mmol/L (3.6-5.0) 10/12/17 05:25 Chloride 104.7 mmol/L (98-107) 10/11/17 04:35 Carbon Dioxide 20 mmol/L (22-30) L 10/11/17 04:35 Anion Gap 19 mmol/L 10/11/17 04:35 BUN 9 mg/dL (9-20) 10/11/17 04:35 Creatinine 0.4 mg/dL (0.8-1.5) L 10/11/17 04:35 Estimated GFR > 60 ml/min 10/11/17 04:35 BUN/Creatinine Ratio 23 % 10/11/17 04:35 Glucose 210 mg/dL (75-100) H 10/11/17 04:35 POC Glucose 157 (70-105) H 10/13/17 07:27 Ketones Quantitative Negative (Negative) 10/06/17 Unknown Lactic Acid 3.10 mmol/L (0.7-2.0) H* 10/07/17 Unknown Calcium 7.5 mg/dL (8.4-10.2) L 10/11/17 04:35 Phosphorus 4.60 mg/dL (2.5-4.5) H 10/06/17 19:37 Magnesium 2.20 mg/dL (1.7-2.3) 10/06/17 19:37 Total Bilirubin 1.10 mg/dL (0.1-1.2) 10/07/17 09:29 Direct Bilirubin 0.3 mg/dL (0-0.2) H 10/07/17 09:29 Indirect Bilirubin 0.8 mg/dL 10/07/17 09:29 AST 53 units/L (5-40) H 10/07/17 09:29 ALT 40 units/L (7-56) 10/07/17 09:29 Alkaline Phosphatase 231 units/L (35-129) H 10/07/17 09:29 Ammonia 83.0 umol/L (25-60) H 10/13/17 08:05 Troponin T 0.011 ng/mL (0.00-0.029) 10/06/17 18:24 NT-Pro-B Natriuret Pep 258.8 pg/mL (0-900) 10/06/17 18:24 Total Protein 8.4 g/dL (6.3-8.2) H 10/07/17 09:29 Albumin 2.3 g/dL (3.9-5) L 10/07/17 09:29 Albumin/Globulin Ratio 0.4 % 10/07/17 09:29 Urine Color Yellow (Yellow) 10/07/17 17:37 Urine Turbidity Clear (Clear) 10/07/17 17:37 Urine pH 5.0 (5.0-7.0) 10/07/17 17:37 Ur Specific [place] 1.026 (1.003-1.030) 10/07/17 17:37 Urine Protein 30 mg/dl mg/dL (Negative) 10/07/17 17:37 Urine Glucose (UA) 50 mg/dL (Negative) 10/07/17 17:37 Urine Ketones Neg mg/dL (Negative) 10/07/17 17:37 Urine Blood Lg (Negative) 10/07/17 17:37 Urine Nitrite Neg (Negative) 10/07/17 17:37 Urine Bilirubin Neg (Negative) 10/07/17 17:37 Urine Urobilinogen 2.0 mg/dL (<2.0) 10/07/17 17:37 Ur Leukocyte Esterase Neg (Negative) 10/07/17 17:37 Urine WBC (Auto) 4.0 /HPF (0.0-6.0) 10/07/17 17:37 Urine RBC (Auto) 124.0 /HPF (0.0-6.0) 10/07/17 17:37 Urine Mucus Few /HPF 10/07/17 17:37 Vancomycin Trough 12.8 ug/mL (5.0-20.0) 10/10/17 12:37
[2017-10-13] MEDS: ZOFRAN IV PRN (23:43)
[2017-10-14] MEDS: CEPHULAC PO SCH ×4 (00:20→17:18)
[2017-10-14 06:14] LABS: Basophils # (Auto) 0.1 K/mm3 (0.0-0.1); Basophils % (Auto) 0.6 % (0.0-1.8); Eosinophils # (Auto) 0.1 K/mm3 (0.0-0.4); Eosinophils % (Auto) 0.8 % (0.0-4.3); Hematocrit 36.4 % (35.5-45.6); Hemoglobin 12.2 gm/dl (11.8-15.2); Lymphocytes # (Auto) 2.8 K/mm3 (1.2-5.4); Lymphocytes % (Auto) 25.3 % (13.4-35.0); Mean Corpuscular HGB Conc 34 % (32-34); Mean Corpuscular Hemoglobin 30 pg (28-32); Mean Corpuscular Volume 89 fl (84-94); Monocytes # (Auto) 0.7 K/mm3 (0.0-0.8); Monocytes % (Auto) 6.1 % (0.0-7.3); Platelet Count 193 K/mm3 (140-440); Red Blood Count 4.08 M/mm3 (3.65-5.03); Red Cell Distribution Width 14.2 % (13.2-15.2)
[2017-10-14 06:24] LABS: BUN/Creatinine Ratio 20; Blood Urea Nitrogen 8 mg/dL (9-20); Calcium 7.9 mg/dL (8.4-10.2); Hemolysis Index 5
[2017-10-14] MEDS: SODIUM CHLORIDE FLUSH SYRINGE 10 ML IV SCH ×3 (08:51→21:21)
--- NOTE | 2017-10-14 10:18 | Progress Note ---
Assessment and Plan Assessment and plan: Sepsis syndrome On Zosyn and vancomycin. Blood cultures drawn, no growth Hepatic encephalopathy. Ammonia level remains elevated Continue lactulose Recheck Ammonia level in am Diabetic ketoacidosis Resolved. Hypernatremia. resolved. dc iv fluid Hypokalemia. Will replete and recheck. Right humerus fracture, s/p sling Malnutrition. Continue nutritional support DVT prophylaxis: SCDs only. No anticoag given because of liver cancer. History Interval history: Patient is somnolent and confused this morning Hospitalist Physical - Constitutional Vitals: Temp Pulse Resp BP Pulse Ox 98.7 F 81 18 119/69 98 10/14/17 07:18 10/14/17 07:18 10/14/17 07:18 10/14/17 07:18 10/14/17 07:18 General appearance: Present: cachectic - EENT Eyes: Present: PERRL, EOM intact ENT: hearing intact, clear oral mucosa, dentition normal - Neck Neck: Present: supple, normal ROM - Respiratory Respiratory effort: normal Respiratory: bilateral: CTA - Cardiovascular Rhythm: regular Heart Sounds: Present: S1 & S2. Absent: gallop, rub - Extremities Extremities: no ischemia, No edema, Full ROM - Abdominal General gastrointestinal: soft, non-tender, non-distended, normal bowel sounds - Integumentary Integumentary: Present: clear, warm, dry - Neurologic Neurologic: CNII-XII intact, moves all extremities Results - Labs CBC & Chem 7: 10/14/17 05:59 10/14/17 05:59 Labs: Laboratory Last Values WBC 10.9 K/mm3 (4.5-11.0) 10/14/17 05:59 RBC 4.08 M/mm3 (3.65-5.03) 10/14/17 05:59 Hgb 12.2 gm/dl (11.8-15.2) 10/14/17 05:59 Hct 36.4 % (35.5-45.6) 10/14/17 05:59 MCV 89 fl (84-94) 10/14/17 05:59 MCH 30 pg (28-32) 10/14/17 05:59 MCHC 34 % (32-34) 10/14/17 05:59 RDW 14.2 % (13.2-15.2) 10/14/17 05:59 Plt Count 193 K/mm3 (140-440) 10/14/17 05:59 Lymph % (Auto) 25.3 % (13.4-35.0) 10/14/17 05:59 [place] % (Auto) 6.1 % (0.0-7.3) 10/14/17 05:59 Eos % (Auto) 0.8 % (0.0-4.3) 10/14/17 05:59 Baso % (Auto) 0.6 % (0.0-1.8) 10/14/17 05:59 Lymph # 2.8 K/mm3 (1.2-5.4) 10/14/17 05:59 [place] # 0.7 K/mm3 (0.0-0.8) 10/14/17 05:59 Eos # 0.1 K/mm3 (0.0-0.4) 10/14/17 05:59 Baso # 0.1 K/mm3 (0.0-0.1) 10/14/17 05:59 Seg Neutrophils % 67.2 % (40.0-70.0) 10/14/17 05:59 Seg Neutrophils # 7.3 K/mm3 (1.8-7.7) 10/14/17 05:59 PT 15.7 Sec. (12.2-14.9) H 10/06/17 18:24 INR 1.18 (0.87-1.13) H 10/06/17 18:24 POC ABG pH 7.396 (7.35-7.45) 10/06/17 18:20 POC ABG pCO2 22.2 (35-45) L 10/06/17 18:20 POC ABG pO2 170 (80-105) H 10/06/17 18:20 POC ABG HCO3 13.6 10/06/17 18:20 POC ABG Total CO2 14 10/06/17 18:20 POC ABG O2 Sat 100 10/06/17 18:20 POC ABG Base Excess -11 10/06/17 18:20 FiO2 85 % 10/06/17 18:20 Sodium 137 mmol/L (137-145) 10/14/17 05:59 Potassium 3.5 mmol/L (3.6-5.0) L 10/14/17 05:59 Chloride 107.7 mmol/L (98-107) H 10/14/17 05:59 Carbon Dioxide 23 mmol/L (22-30) 10/14/17 05:59 Anion Gap 10 mmol/L 10/14/17 05:59 BUN 8 mg/dL (9-20) L 10/14/17 05:59 Creatinine 0.4 mg/dL (0.8-1.5) L 10/14/17 05:59 Estimated GFR > 60 ml/min 10/14/17 05:59 BUN/Creatinine Ratio 20 % 10/14/17 05:59 Glucose 219 mg/dL (75-100) H 10/14/17 05:59 POC Glucose 207 (70-105) H 10/14/17 07:26 Ketones Quantitative Negative (Negative) 10/06/17 Unknown Lactic Acid 3.10 mmol/L (0.7-2.0) H* 10/07/17 Unknown Calcium 7.9 mg/dL (8.4-10.2) L 10/14/17 05:59 Phosphorus 4.60 mg/dL (2.5-4.5) H 10/06/17 19:37 Magnesium 2.20 mg/dL (1.7-2.3) 10/06/17 19:37 Total Bilirubin 1.10 mg/dL (0.1-1.2) 10/07/17 09:29 Direct Bilirubin 0.3 mg/dL (0-0.2) H 10/07/17 09:29 Indirect Bilirubin 0.8 mg/dL 10/07/17 09:29 AST 53 units/L (5-40) H 10/07/17 09:29 ALT 40 units/L (7-56) 10/07/17 09:29 Alkaline Phosphatase 231 units/L (35-129) H 10/07/17 09:29 Ammonia 120.0 umol/L (25-60) H 10/14/17 05:59 Troponin T 0.011 ng/mL (0.00-0.029) 10/06/17 18:24 NT-Pro-B Natriuret Pep 258.8 pg/mL (0-900) 10/06/17 18:24 Total Protein 8.4 g/dL (6.3-8.2) H 10/07/17 09:29 Albumin 2.3 g/dL (3.9-5) L 10/07/17 09:29 Albumin/Globulin Ratio 0.4 % 10/07/17 09:29 Urine Color Yellow (Yellow) 10/07/17 17:37 Urine Turbidity Clear (Clear) 10/07/17 17:37 Urine pH 5.0 (5.0-7.0) 10/07/17 17:37 Ur Specific [place] 1.026 (1.003-1.030) 10/07/17 17:37 Urine Protein 30 mg/dl mg/dL (Negative) 10/07/17 17:37 Urine Glucose (UA) 50 mg/dL (Negative) 10/07/17 17:37 Urine Ketones Neg mg/dL (Negative) 10/07/17 17:37 Urine Blood Lg (Negative) 10/07/17 17:37 Urine Nitrite Neg (Negative) 10/07/17 17:37 Urine Bilirubin Neg (Negative) 10/07/17 17:37 Urine Urobilinogen 2.0 mg/dL (<2.0) 10/07/17 17:37 Ur Leukocyte Esterase Neg (Negative) 10/07/17 17:37 Urine WBC (Auto) 4.0 /HPF (0.0-6.0) 10/07/17 17:37 Urine RBC (Auto) 124.0 /HPF (0.0-6.0) 10/07/17 17:37 Urine Mucus Few /HPF 10/07/17 17:37 Vancomycin Trough 12.8 ug/mL (5.0-20.0) 10/10/17 12:37
[2017-10-15] MEDS: CEPHULAC PO SCH ×4 (03:19→17:33)
--- NOTE | 2017-10-15 09:34 | Progress Note ---
Assessment and Plan Assessment and plan: Sepsis syndrome On Zosyn and vancomycin. Blood cultures drawn, no growth Hepatic encephalopathy. Ammonia level remains elevated Continue lactulose and increase to 45 QID Recheck Ammonia level in am Diabetic ketoacidosis Resolved. Hypernatremia. resolved. dc iv fluid Hypokalemia. Will replete and recheck. Right humerus fracture, s/p sling Malnutrition. Continue nutritional support DVT prophylaxis: SCDs only. No anticoag given because of liver cancer. History Interval history: No new issues overnight Hospitalist Physical - Constitutional Vitals: Temp Pulse Resp BP Pulse Ox 97.5 F L 66 18 114/73 98 10/15/17 07:31 10/15/17 07:10/15/17 07:10/15/17 07:10/15/17 07:42 General appearance: Present: cachectic - EENT Eyes: Present: PERRL, EOM intact ENT: hearing intact, clear oral mucosa, dentition normal - Neck Neck: Present: supple, normal ROM - Respiratory Respiratory effort: normal Respiratory: bilateral: CTA - Cardiovascular Rhythm: regular Heart Sounds: Present: S1 & S2. Absent: gallop, rub - Extremities Extremities: no ischemia, No edema, Full ROM - Abdominal General gastrointestinal: soft, non-tender, non-distended, normal bowel sounds - Integumentary Integumentary: Present: clear, warm, dry - Neurologic Neurologic: CNII-XII intact, moves all extremities Results - Labs CBC & Chem 7: 10/14/17 05:59 10/14/17 05:59 Labs: Laboratory Last Values WBC 10.9 K/mm3 (4.5-11.0) 10/14/17 05:59 RBC 4.08 M/mm3 (3.65-5.03) 10/14/17 05:59 Hgb 12.2 gm/dl (11.8-15.2) 10/14/17 05:59 Hct 36.4 % (35.5-45.6) 10/14/17 05:59 MCV 89 fl (84-94) 10/14/17 05:59 MCH 30 pg (28-32) 10/14/17 05:59 MCHC 34 % (32-34) 10/14/17 05:59 RDW 14.2 % (13.2-15.2) 10/14/17 05:59 Plt Count 193 K/mm3 (140-440) 10/14/17 05:59 Lymph % (Auto) 25.3 % (13.4-35.0) 10/14/17 05:59 [place] % (Auto) 6.1 % (0.0-7.3) 10/14/17 05:59 Eos % (Auto) 0.8 % (0.0-4.3) 10/14/17 05:59 Baso % (Auto) 0.6 % (0.0-1.8) 10/14/17 05:59 Lymph # 2.8 K/mm3 (1.2-5.4) 10/14/17 05:59 [place] # 0.7 K/mm3 (0.0-0.8) 10/14/17 05:59 Eos # 0.1 K/mm3 (0.0-0.4) 10/14/17 05:59 Baso # 0.1 K/mm3 (0.0-0.1) 10/14/17 05:59 Seg Neutrophils % 67.2 % (40.0-70.0) 10/14/17 05:59 Seg Neutrophils # 7.3 K/mm3 (1.8-7.7) 10/14/17 05:59 PT 15.7 Sec. (12.2-14.9) H 10/06/17 18:24 INR 1.18 (0.87-1.13) H 10/06/17 18:24 POC ABG pH 7.396 (7.35-7.45) 10/06/17 18:20 POC ABG pCO2 22.2 (35-45) L 10/06/17 18:20 POC ABG pO2 170 (80-105) H 10/06/17 18:20 POC ABG HCO3 13.6 10/06/17 18:20 POC ABG Total CO2 14 10/06/17 18:20 POC ABG O2 Sat 100 10/06/17 18:20 POC ABG Base Excess -11 10/06/17 18:20 FiO2 85 % 10/06/17 18:20 Sodium 137 mmol/L (137-145) 10/14/17 05:59 Potassium 3.5 mmol/L (3.6-5.0) L 10/14/17 05:59 Chloride 107.7 mmol/L (98-107) H 10/14/17 05:59 Carbon Dioxide 23 mmol/L (22-30) 10/14/17 05:59 Anion Gap 10 mmol/L 10/14/17 05:59 BUN 8 mg/dL (9-20) L 10/14/17 05:59 Creatinine 0.4 mg/dL (0.8-1.5) L 10/14/17 05:59 Estimated GFR > 60 ml/min 10/14/17 05:59 BUN/Creatinine Ratio 20 % 10/14/17 05:59 Glucose 219 mg/dL (75-100) H 10/14/17 05:59 POC Glucose 164 (70-105) H 10/15/17 07:40 Ketones Quantitative Negative (Negative) 10/06/17 Unknown Lactic Acid 3.10 mmol/L (0.7-2.0) H* 10/07/17 Unknown Calcium 7.9 mg/dL (8.4-10.2) L 10/14/17 05:59 Phosphorus 4.60 mg/dL (2.5-4.5) H 10/06/17 19:37 Magnesium 2.20 mg/dL (1.7-2.3) 10/06/17 19:37 Total Bilirubin 1.10 mg/dL (0.1-1.2) 10/07/17 09:29 Direct Bilirubin 0.3 mg/dL (0-0.2) H 10/07/17 09:29 Indirect Bilirubin 0.8 mg/dL 10/07/17 09:29 AST 53 units/L (5-40) H 10/07/17 09:29 ALT 40 units/L (7-56) 10/07/17 09:29 Alkaline Phosphatase 231 units/L (35-129) H 10/07/17 09:29 Ammonia 120.0 umol/L (25-60) H 10/14/17 05:59 Troponin T 0.011 ng/mL (0.00-0.029) 10/06/17 18:24 NT-Pro-B Natriuret Pep 258.8 pg/mL (0-900) 10/06/17 18:24 Total Protein 8.4 g/dL (6.3-8.2) H 10/07/17 09:29 Albumin 2.3 g/dL (3.9-5) L 10/07/17 09:29 Albumin/Globulin Ratio 0.4 % 10/07/17 09:29 Urine Color Yellow (Yellow) 10/07/17 17:37 Urine Turbidity Clear (Clear) 10/07/17 17:37 Urine pH 5.0 (5.0-7.0) 10/07/17 17:37 Ur Specific [place] 1.026 (1.003-1.030) 10/07/17 17:37 Urine Protein 30 mg/dl mg/dL (Negative) 10/07/17 17:37 Urine Glucose (UA) 50 mg/dL (Negative) 10/07/17 17:37 Urine Ketones Neg mg/dL (Negative) 10/07/17 17:37 Urine Blood Lg (Negative) 10/07/17 17:37 Urine Nitrite Neg (Negative) 10/07/17 17:37 Urine Bilirubin Neg (Negative) 10/07/17 17:37 Urine Urobilinogen 2.0 mg/dL (<2.0) 10/07/17 17:37 Ur Leukocyte Esterase Neg (Negative) 10/07/17 17:37 Urine WBC (Auto) 4.0 /HPF (0.0-6.0) 10/07/17 17:37 Urine RBC (Auto) 124.0 /HPF (0.0-6.0) 10/07/17 17:37 Urine Mucus Few /HPF 10/07/17 17:37 Vancomycin Trough 12.8 ug/mL (5.0-20.0) 10/10/17 12:37
[2017-10-15] MEDS: SODIUM CHLORIDE FLUSH SYRINGE 10 ML IV SCH ×2 (09:36→22:00)
[2017-10-16] MEDS: CEPHULAC PO SCH ×4 (00:44→17:10)
[2017-10-16] MEDS: SODIUM CHLORIDE FLUSH SYRINGE 10 ML IV SCH (10:03)
--- NOTE | 2017-10-16 11:31 | Progress Note ---
Assessment and Plan Assessment and plan: Sepsis syndrome On Zosyn and vancomycin. Blood cultures drawn, no growth Hepatic encephalopathy. Ammonia level remains elevated Continue lactulose and increase to 45 QID Recheck Ammonia level in am Diabetic ketoacidosis Resolved. Hypernatremia. resolved. dc iv fluid Hypokalemia. Will replete and recheck. Right humerus fracture, s/p sling Malnutrition. Continue nutritional support DVT prophylaxis: SCDs only. No anticoag given because of liver cancer. History Interval history: No new issues overnight. Patient still appears to be confused, somnolent and lethargic. Hospitalist Physical - Constitutional Vitals: Temp Pulse Resp BP Pulse Ox 97.7 F 59 L 20 110/55 97 10/16/17 08:00 10/16/17 08:11 10/16/17 08:11 10/16/17 08:11 10/16/17 08:11 General appearance: Present: cachectic - EENT Eyes: Present: PERRL, EOM intact ENT: hearing intact, clear oral mucosa, dentition normal - Neck Neck: Present: supple, normal ROM - Respiratory Respiratory effort: normal Respiratory: bilateral: CTA - Cardiovascular Rhythm: regular Heart Sounds: Present: S1 & S2. Absent: gallop, rub - Extremities Extremities: no ischemia, No edema, Full ROM - Abdominal General gastrointestinal: soft, non-tender, non-distended, normal bowel sounds - Integumentary Integumentary: Present: clear, warm, dry - Neurologic Neurologic: CNII-XII intact, moves all extremities Results - Labs CBC & Chem 7: 10/14/17 05:59 10/14/17 05:59 Labs: Laboratory Last Values WBC 10.9 K/mm3 (4.5-11.0) 10/14/17 05:59 RBC 4.08 M/mm3 (3.65-5.03) 10/14/17 05:59 Hgb 12.2 gm/dl (11.8-15.2) 10/14/17 05:59 Hct 36.4 % (35.5-45.6) 10/14/17 05:59 MCV 89 fl (84-94) 10/14/17 05:59 MCH 30 pg (28-32) 10/14/17 05:59 MCHC 34 % (32-34) 10/14/17 05:59 RDW 14.2 % (13.2-15.2) 10/14/17 05:59 Plt Count 193 K/mm3 (140-440) 10/14/17 05:59 Lymph % (Auto) 25.3 % (13.4-35.0) 10/14/17 05:59 [place] % (Auto) 6.1 % (0.0-7.3) 10/14/17 05:59 Eos % (Auto) 0.8 % (0.0-4.3) 10/14/17 05:59 Baso % (Auto) 0.6 % (0.0-1.8) 10/14/17 05:59 Lymph # 2.8 K/mm3 (1.2-5.4) 10/14/17 05:59 [place] # 0.7 K/mm3 (0.0-0.8) 10/14/17 05:59 Eos # 0.1 K/mm3 (0.0-0.4) 10/14/17 05:59 Baso # 0.1 K/mm3 (0.0-0.1) 10/14/17 05:59 Seg Neutrophils % 67.2 % (40.0-70.0) 10/14/17 05:59 Seg Neutrophils # 7.3 K/mm3 (1.8-7.7) 10/14/17 05:59 PT 15.7 Sec. (12.2-14.9) H 10/06/17 18:24 INR 1.18 (0.87-1.13) H 10/06/17 18:24 POC ABG pH 7.396 (7.35-7.45) 10/06/17 18:20 POC ABG pCO2 22.2 (35-45) L 10/06/17 18:20 POC ABG pO2 170 (80-105) H 10/06/17 18:20 POC ABG HCO3 13.6 10/06/17 18:20 POC ABG Total CO2 14 10/06/17 18:20 POC ABG O2 Sat 100 10/06/17 18:20 POC ABG Base Excess -11 10/06/17 18:20 FiO2 85 % 10/06/17 18:20 Sodium 137 mmol/L (137-145) 10/14/17 05:59 Potassium 3.5 mmol/L (3.6-5.0) L 10/14/17 05:59 Chloride 107.7 mmol/L (98-107) H 10/14/17 05:59 Carbon Dioxide 23 mmol/L (22-30) 10/14/17 05:59 Anion Gap 10 mmol/L 10/14/17 05:59 BUN 8 mg/dL (9-20) L 10/14/17 05:59 Creatinine 0.4 mg/dL (0.8-1.5) L 10/14/17 05:59 Estimated GFR > 60 ml/min 10/14/17 05:59 BUN/Creatinine Ratio 20 % 10/14/17 05:59 Glucose 219 mg/dL (75-100) H 10/14/17 05:59 POC Glucose 295 (70-105) H 10/16/17 11:24 Ketones Quantitative Negative (Negative) 10/06/17 Unknown Lactic Acid 3.10 mmol/L (0.7-2.0) H* 10/07/17 Unknown Calcium 7.9 mg/dL (8.4-10.2) L 10/14/17 05:59 Phosphorus 4.60 mg/dL (2.5-4.5) H 10/06/17 19:37 Magnesium 2.20 mg/dL (1.7-2.3) 10/06/17 19:37 Total Bilirubin 1.10 mg/dL (0.1-1.2) 10/07/17 09:29 Direct Bilirubin 0.3 mg/dL (0-0.2) H 10/07/17 09:29 Indirect Bilirubin 0.8 mg/dL 10/07/17 09:29 AST 53 units/L (5-40) H 10/07/17 09:29 ALT 40 units/L (7-56) 10/07/17 09:29 Alkaline Phosphatase 231 units/L (35-129) H 10/07/17 09:29 Ammonia 117.0 umol/L (25-60) H 10/16/17 10:38 Troponin T 0.011 ng/mL (0.00-0.029) 10/06/17 18:24 NT-Pro-B Natriuret Pep 258.8 pg/mL (0-900) 10/06/17 18:24 Total Protein 8.4 g/dL (6.3-8.2) H 10/07/17 09:29 Albumin 2.3 g/dL (3.9-5) L 10/07/17 09:29 Albumin/Globulin Ratio 0.4 % 10/07/17 09:29 Urine Color Yellow (Yellow) 10/07/17 17:37 Urine Turbidity Clear (Clear) 10/07/17 17:37 Urine pH 5.0 (5.0-7.0) 10/07/17 17:37 Ur Specific [place] 1.026 (1.003-1.030) 10/07/17 17:37 Urine Protein 30 mg/dl mg/dL (Negative) 10/07/17 17:37 Urine Glucose (UA) 50 mg/dL (Negative) 10/07/17 17:37 Urine Ketones Neg mg/dL (Negative) 10/07/17 17:37 Urine Blood Lg (Negative) 10/07/17 17:37 Urine Nitrite Neg (Negative) 10/07/17 17:37 Urine Bilirubin Neg (Negative) 10/07/17 17:37 Urine Urobilinogen 2.0 mg/dL (<2.0) 10/07/17 17:37 Ur Leukocyte Esterase Neg (Negative) 10/07/17 17:37 Urine WBC (Auto) 4.0 /HPF (0.0-6.0) 10/07/17 17:37 Urine RBC (Auto) 124.0 /HPF (0.0-6.0) 10/07/17 17:37 Urine Mucus Few /HPF 10/07/17 17:37 Vancomycin Trough 12.8 ug/mL (5.0-20.0) 10/10/17 12:37
[2017-10-17] MEDS: CEPHULAC PO SCH ×5 (00:04→23:08)
[2017-10-17] MEDS: SODIUM CHLORIDE FLUSH SYRINGE 10 ML IV SCH ×3 (00:05→23:10)
[2017-10-17 11:12] LABS: Basophils # (Auto) 0.1 K/mm3 (0.0-0.1); Eosinophils # (Auto) 0.1 K/mm3 (0.0-0.4); Eosinophils % (Auto) 1.6 % (0.0-4.3); Hematocrit 36.6 % (35.5-45.6); Hemoglobin 12.4 gm/dl (11.8-15.2); Lymphocytes # (Auto) 2.3 K/mm3 (1.2-5.4); Lymphocytes % (Auto) 28.2 % (13.4-35.0); Mean Corpuscular HGB Conc 34 % (32-34); Mean Corpuscular Hemoglobin 31 pg (28-32); Mean Corpuscular Volume 90 fl (84-94); Monocytes # (Auto) 0.5 K/mm3 (0.0-0.8); Monocytes % (Auto) 6.3 % (0.0-7.3); Platelet Count 239 K/mm3 (140-440); Red Blood Count 4.06 M/mm3 (3.65-5.03)
[2017-10-17] MEDS ORDERED: D50W (25GM) Syringe IV PRN (11:25)
--- NOTE | 2017-10-17 11:26 | Progress Note ---
Assessment and Plan Assessment and plan: Sepsis syndrome On Zosyn and vancomycin. Blood cultures drawn, no growth Hepatic encephalopathy. Ammonia level remains elevated Continue lactulose and increase to 45 QID Recheck Ammonia level in am Diabetic ketoacidosis Resolved. Hypernatremia. resolved. dc iv fluid Hypokalemia. Will replete and recheck. Right humerus fracture, s/p sling Malnutrition. Continue nutritional support DVT prophylaxis: SCDs only. No anticoag given because of liver cancer. History Interval history: No new issues overnight. Patient still appears to be confused, somnolent and lethargic. Hospitalist Physical - Constitutional Vitals: Temp Pulse Resp BP Pulse Ox 98.7 F 62 20 99/68 98 10/17/17 07:44 10/17/17 09:17 10/17/17 09:17 10/17/17 07:44 10/17/17 09:46 General appearance: Present: cachectic - EENT Eyes: Present: PERRL, EOM intact ENT: hearing intact, clear oral mucosa, dentition normal - Neck Neck: Present: supple, normal ROM - Respiratory Respiratory effort: normal Respiratory: bilateral: CTA - Cardiovascular Rhythm: regular Heart Sounds: Present: S1 & S2. Absent: gallop, rub - Extremities Extremities: no ischemia, No edema, Full ROM - Abdominal General gastrointestinal: soft, non-tender, non-distended, normal bowel sounds - Integumentary Integumentary: Present: clear, warm, dry - Neurologic Neurologic: CNII-XII intact, moves all extremities Results - Labs CBC & Chem 7: 10/17/17 10:37 10/14/17 05:59 Labs: Laboratory Last Values WBC 8.0 K/mm3 (4.5-11.0) 10/17/17 10:37 RBC 4.06 M/mm3 (3.65-5.03) 10/17/17 10:37 Hgb 12.4 gm/dl (11.8-15.2) 10/17/17 10:37 Hct 36.6 % (35.5-45.6) 10/17/17 10:37 MCV 90 fl (84-94) 10/17/17 10:37 MCH 31 pg (28-32) 10/17/17 10:37 MCHC 34 % (32-34) 10/17/17 10:37 RDW 15.0 % (13.2-15.2) 10/17/17 10:37 Plt Count 239 K/mm3 (140-440) 10/17/17 10:37 Lymph % (Auto) 28.2 % (13.4-35.0) 10/17/17 10:37 [place] % (Auto) 6.3 % (0.0-7.3) 10/17/17 10:37 Eos % (Auto) 1.6 % (0.0-4.3) 10/17/17 10:37 Baso % (Auto) 1.0 % (0.0-1.8) 10/17/17 10:37 Lymph # 2.3 K/mm3 (1.2-5.4) 10/17/17 10:37 [place] # 0.5 K/mm3 (0.0-0.8) 10/17/17 10:37 Eos # 0.1 K/mm3 (0.0-0.4) 10/17/17 10:37 Baso # 0.1 K/mm3 (0.0-0.1) 10/17/17 10:37 Seg Neutrophils % 62.9 % (40.0-70.0) 10/17/17 10:37 Seg Neutrophils # 5.0 K/mm3 (1.8-7.7) 10/17/17 10:37 PT 15.7 Sec. (12.2-14.9) H 10/06/17 18:24 INR 1.18 (0.87-1.13) H 10/06/17 18:24 POC ABG pH 7.396 (7.35-7.45) 10/06/17 18:20 POC ABG pCO2 22.2 (35-45) L 10/06/17 18:20 POC ABG pO2 170 (80-105) H 10/06/17 18:20 POC ABG HCO3 13.6 10/06/17 18:20 POC ABG Total CO2 14 10/06/17 18:20 POC ABG O2 Sat 100 10/06/17 18:20 POC ABG Base Excess -11 10/06/17 18:20 FiO2 85 % 10/06/17 18:20 Sodium 137 mmol/L (137-145) 10/14/17 05:59 Potassium 3.5 mmol/L (3.6-5.0) L 10/14/17 05:59 Chloride 107.7 mmol/L (98-107) H 10/14/17 05:59 Carbon Dioxide 23 mmol/L (22-30) 10/14/17 05:59 Anion Gap 10 mmol/L 10/14/17 05:59 BUN 8 mg/dL (9-20) L 10/14/17 05:59 Creatinine 0.4 mg/dL (0.8-1.5) L 10/14/17 05:59 Estimated GFR > 60 ml/min 10/14/17 05:59 BUN/Creatinine Ratio 20 % 10/14/17 05:59 Glucose 219 mg/dL (75-100) H 10/14/17 05:59 POC Glucose 271 (70-105) H 10/17/17 07:52 Ketones Quantitative Negative (Negative) 10/06/17 Unknown Lactic Acid 3.10 mmol/L (0.7-2.0) H* 10/07/17 Unknown Calcium 7.9 mg/dL (8.4-10.2) L 10/14/17 05:59 Phosphorus 4.60 mg/dL (2.5-4.5) H 10/06/17 19:37 Magnesium 2.20 mg/dL (1.7-2.3) 10/06/17 19:37 Total Bilirubin 1.10 mg/dL (0.1-1.2) 10/07/17 09:29 Direct Bilirubin 0.3 mg/dL (0-0.2) H 10/07/17 09:29 Indirect Bilirubin 0.8 mg/dL 10/07/17 09:29 AST 53 units/L (5-40) H 10/07/17 09:29 ALT 40 units/L (7-56) 10/07/17 09:29 Alkaline Phosphatase 231 units/L (35-129) H 10/07/17 09:29 Ammonia 92.0 umol/L (25-60) H 10/17/17 10:37 Troponin T 0.011 ng/mL (0.00-0.029) 10/06/17 18:24 NT-Pro-B Natriuret Pep 258.8 pg/mL (0-900) 10/06/17 18:24 Total Protein 8.4 g/dL (6.3-8.2) H 10/07/17 09:29 Albumin 2.3 g/dL (3.9-5) L 10/07/17 09:29 Albumin/Globulin Ratio 0.4 % 10/07/17 09:29 Urine Color Yellow (Yellow) 10/07/17 17:37 Urine Turbidity Clear (Clear) 10/07/17 17:37 Urine pH 5.0 (5.0-7.0) 10/07/17 17:37 Ur Specific [place] 1.026 (1.003-1.030) 10/07/17 17:37 Urine Protein 30 mg/dl mg/dL (Negative) 10/07/17 17:37 Urine Glucose (UA) 50 mg/dL (Negative) 10/07/17 17:37 Urine Ketones Neg mg/dL (Negative) 10/07/17 17:37 Urine Blood Lg (Negative) 10/07/17 17:37 Urine Nitrite Neg (Negative) 10/07/17 17:37 Urine Bilirubin Neg (Negative) 10/07/17 17:37 Urine Urobilinogen 2.0 mg/dL (<2.0) 10/07/17 17:37 Ur Leukocyte Esterase Neg (Negative) 10/07/17 17:37 Urine WBC (Auto) 4.0 /HPF (0.0-6.0) 10/07/17 17:37 Urine RBC (Auto) 124.0 /HPF (0.0-6.0) 10/07/17 17:37 Urine Mucus Few /HPF 10/07/17 17:37 Vancomycin Trough 12.8 ug/mL (5.0-20.0) 10/10/17 12:37
[2017-10-17 11:43] LABS: BUN/Creatinine Ratio 18; Blood Urea Nitrogen 7 mg/dL (9-20); Calcium 8.4 mg/dL (8.4-10.2); Hemolysis Index 113
[2017-10-17] MEDS: HumuLIN R SUB-Q SCH ×3 (11:55→23:40)
[2017-10-18] MEDS: CEPHULAC PO SCH ×3 (05:27→19:06)
[2017-10-18] MEDS: HumuLIN R SUB-Q SCH ×4 (08:25→22:25)
--- NOTE | 2017-10-18 09:06 | Progress Note ---
Assessment and Plan Assessment and plan: Sepsis syndrome. Resolved Off Zosyn and vancomycin. Blood cultures completed, no growth Hepatic encephalopathy. Ammonia level remains elevated but improved Continue lactulose and increase to 45 QID Consider increasing to 60 4 times a day or adding Xifaxan. Recheck Ammonia level in am Diabetic ketoacidosis Resolved. Hypernatremia. resolved. dc iv fluid Hypokalemia. Will replete and recheck. Right humerus fracture, s/p sling Malnutrition. Continue nutritional support DVT prophylaxis: SCDs only. No anticoag given because of liver cancer. History Interval history: No new issues overnight. Patient appears much more appropriate and answering questions. Awake and alert. Hospitalist Physical - Constitutional Vitals: Temp Pulse Resp BP Pulse Ox 98.7 F 70 20 107/72 98 10/18/17 07:40 10/18/17 07:40 10/18/17 07:40 10/18/17 07:40 10/18/17 07:40 General appearance: Present: cachectic - EENT Eyes: Present: PERRL, EOM intact ENT: hearing intact, clear oral mucosa, dentition normal - Neck Neck: Present: supple, normal ROM - Respiratory Respiratory effort: normal Respiratory: bilateral: CTA - Cardiovascular Rhythm: regular Heart Sounds: Present: S1 & S2. Absent: gallop, rub - Extremities Extremities: no ischemia, No edema, Full ROM - Abdominal General gastrointestinal: soft, non-tender, non-distended, normal bowel sounds - Integumentary Integumentary: Present: clear, warm, dry - Neurologic Neurologic: CNII-XII intact, moves all extremities Results - Labs CBC & Chem 7: 10/17/17 10:37 10/17/17 10:37 Labs: Laboratory Last Values WBC 8.0 K/mm3 (4.5-11.0) 10/17/17 10:37 RBC 4.06 M/mm3 (3.65-5.03) 10/17/17 10:37 Hgb 12.4 gm/dl (11.8-15.2) 10/17/17 10:37 Hct 36.6 % (35.5-45.6) 10/17/17 10:37 MCV 90 fl (84-94) 10/17/17 10:37 MCH 31 pg (28-32) 10/17/17 10:37 MCHC 34 % (32-34) 10/17/17 10:37 RDW 15.0 % (13.2-15.2) 10/17/17 10:37 Plt Count 239 K/mm3 (140-440) 10/17/17 10:37 Lymph % (Auto) 28.2 % (13.4-35.0) 10/17/17 10:37 [place] % (Auto) 6.3 % (0.0-7.3) 10/17/17 10:37 Eos % (Auto) 1.6 % (0.0-4.3) 10/17/17 10:37 Baso % (Auto) 1.0 % (0.0-1.8) 10/17/17 10:37 Lymph # 2.3 K/mm3 (1.2-5.4) 10/17/17 10:37 Isabella # 0.5 K/mm3 (0.0-0.8) 10/17/17 10:37 Eos # 0.1 K/mm3 (0.0-0.4) 10/17/17 10:37 Baso # 0.1 K/mm3 (0.0-0.1) 10/17/17 10:37 Seg Neutrophils % 62.9 % (40.0-70.0) 10/17/17 10:37 Seg Neutrophils # 5.0 K/mm3 (1.8-7.7) 10/17/17 10:37 PT 15.7 Sec. (12.2-14.9) H 10/06/17 18:24 INR 1.18 (0.87-1.13) H 10/06/17 18:24 POC ABG pH 7.396 (7.35-7.45) 10/06/17 18:20 POC ABG pCO2 22.2 (35-45) L 10/06/17 18:20 POC ABG pO2 170 (80-105) H 10/06/17 18:20 POC ABG HCO3 13.6 10/06/17 18:20 POC ABG Total CO2 14 10/06/17 18:20 POC ABG O2 Sat 100 10/06/17 18:20 POC ABG Base Excess -11 10/06/17 18:20 FiO2 85 % 10/06/17 18:20 Sodium 133 mmol/L (137-145) L 10/17/17 10:37 Potassium 4.4 mmol/L (3.6-5.0) D 10/17/17 10:37 Chloride 101.4 mmol/L (98-107) 10/17/17 10:37 Carbon Dioxide 21 mmol/L (22-30) L 10/17/17 10:37 Anion Gap 15 mmol/L 10/17/17 10:37 BUN 7 mg/dL (9-20) L 10/17/17 10:37 Creatinine 0.4 mg/dL (0.8-1.5) L 10/17/17 10:37 Estimated GFR > 60 ml/min 10/17/17 10:37 BUN/Creatinine Ratio 18 % 10/17/17 10:37 Glucose 307 mg/dL (75-100) H 10/17/17 10:37 POC Glucose 158 (70-105) H 10/18/17 07:45 Ketones Quantitative Negative (Negative) 10/06/17 Unknown Lactic Acid 3.10 mmol/L (0.7-2.0) H* 10/07/17 Unknown Calcium 8.4 mg/dL (8.4-10.2) 10/17/17 10:37 Phosphorus 4.60 mg/dL (2.5-4.5) H 10/06/17 19:37 Magnesium 2.20 mg/dL (1.7-2.3) 10/06/17 19:37 Total Bilirubin 1.10 mg/dL (0.1-1.2) 10/07/17 09:29 Direct Bilirubin 0.3 mg/dL (0-0.2) H 10/07/17 09:29 Indirect Bilirubin 0.8 mg/dL 10/07/17 09:29 AST 53 units/L (5-40) H 10/07/17 09:29 ALT 40 units/L (7-56) 10/07/17 09:29 Alkaline Phosphatase 231 units/L (35-129) H 10/07/17 09:29 Ammonia 78.0 umol/L (25-60) H 10/18/17 04:48 Troponin T 0.011 ng/mL (0.00-0.029) 10/06/17 18:24 NT-Pro-B Natriuret Pep 258.8 pg/mL (0-900) 10/06/17 18:24 Total Protein 8.4 g/dL (6.3-8.2) H 10/07/17 09:29 Albumin 2.3 g/dL (3.9-5) L 10/07/17 09:29 Albumin/Globulin Ratio 0.4 % 10/07/17 09:29 Urine Color Yellow (Yellow) 10/07/17 17:37 Urine Turbidity Clear (Clear) 10/07/17 17:37 Urine pH 5.0 (5.0-7.0) 10/07/17 17:37 Ur Specific [place] 1.026 (1.003-1.030) 10/07/17 17:37 Urine Protein 30 mg/dl mg/dL (Negative) 10/07/17 17:37 Urine Glucose (UA) 50 mg/dL (Negative) 10/07/17 17:37 Urine Ketones Neg mg/dL (Negative) 10/07/17 17:37 Urine Blood Lg (Negative) 10/07/17 17:37 Urine Nitrite Neg (Negative) 10/07/17 17:37 Urine Bilirubin Neg (Negative) 10/07/17 17:37 Urine Urobilinogen 2.0 mg/dL (<2.0) 10/07/17 17:37 Ur Leukocyte Esterase Neg (Negative) 10/07/17 17:37 Urine WBC (Auto) 4.0 /HPF (0.0-6.0) 10/07/17 17:37 Urine RBC (Auto) 124.0 /HPF (0.0-6.0) 10/07/17 17:37 Urine Mucus Few /HPF 10/07/17 17:37 Vancomycin Trough 12.8 ug/mL (5.0-20.0) 10/10/17 12:37
[2017-10-18] MEDS: SODIUM CHLORIDE FLUSH SYRINGE 10 ML IV SCH ×2 (10:30→22:23)
[2017-10-19] MEDS: CEPHULAC PO SCH ×4 (00:34→18:06)
--- NOTE | 2017-10-19 07:58 | Cat Scan Report ---
FINAL REPORT EXAM: CT HEAD WO CONTRAST HISTORY: AMS TECHNIQUE: Standard unenhanced CT of the head at 5.0 millimeter axial increments. PRIORS: None. FINDINGS: The ventricular system is normal in size and configuration. There is no evidence for parenchymal volume loss. There is no evidence for mass lesion, mass effect, midline shift, acute intracranial hemorrhage, or acute ischemia/ infarction. No evidence for acute skull fracture is seen. No abnormality in the overlying scalp soft tissues is seen. Visualized paranasal sinuses demonstrates mucosal thickening in the bilateral ethmoid and maxillary sinuses. IMPRESSION: Mild chronic sinusitis. No acute intracranial process noted.
--- NOTE | 2017-10-19 08:48 | Progress Note ---
Assessment and Plan Assessment and plan: Sepsis syndrome Completed Zosyn and vancomycin. Blood cultures - no growth Hepatic encephalopathy. Ammonia level 60 today,normal Lactulose dose increased to 45g QID Recheck Ammonia level in am Diabetic ketoacidosis Resolved. Hypernatremia. resolved. dc iv fluid Hypokalemia. resolved Right humerus fracture, s/p sling Malnutrition. Continue nutritional support DVT prophylaxis: SCDs only. No anticoag given because of liver cancer. Medically stable for discharge. Awaiting placement History Interval history: Patient is 67 yo with hepatocellular cancer, sent in from SNF for altered mental status, Now fully awake Hospitalist Physical - Physical exam Narrative exam: General: Not in acute distress, malnourished HEENT:Normocephalic, atraumatic Neck:supple,no JVD Lungs: Clear to auscultation bilaterally, no crackles, no wheeze Heart:S1 and S2 regular tachycardia, no murmurs, rubs or gallop Abd: soft, non tender, non distended, normal bowel sounds Ext: No edema, no clubbing, no cyanosis Neuro: Awake, alert, moves all extremities. - Constitutional Vitals: Temp Pulse Resp BP Pulse Ox 97.7 F 67 18 127/72 96 10/19/17 07:30 10/19/17 07:30 10/19/17 07:30 10/19/17 07:30 10/19/17 07:30 General appearance: Present: cachectic Results - Labs CBC & Chem 7: 10/17/17 10:37 10/17/17 10:37 Labs: Laboratory Last Values WBC 8.0 K/mm3 (4.5-11.0) 10/17/17 10:37 RBC 4.06 M/mm3 (3.65-5.03) 10/17/17 10:37 Hgb 12.4 gm/dl (11.8-15.2) 10/17/17 10:37 Hct 36.6 % (35.5-45.6) 10/17/17 10:37 MCV 90 fl (84-94) 10/17/17 10:37 MCH 31 pg (28-32) 10/17/17 10:37 MCHC 34 % (32-34) 10/17/17 10:37 RDW 15.0 % (13.2-15.2) 10/17/17 10:37 Plt Count 239 K/mm3 (140-440) 10/17/17 10:37 Lymph % (Auto) 28.2 % (13.4-35.0) 10/17/17 10:37 [place] % (Auto) 6.3 % (0.0-7.3) 10/17/17 10:37 Eos % (Auto) 1.6 % (0.0-4.3) 10/17/17 10:37 Baso % (Auto) 1.0 % (0.0-1.8) 10/17/17 10:37 Lymph # 2.3 K/mm3 (1.2-5.4) 10/17/17 10:37 [place] # 0.5 K/mm3 (0.0-0.8) 10/17/17 10:37 Eos # 0.1 K/mm3 (0.0-0.4) 10/17/17 10:37 Baso # 0.1 K/mm3 (0.0-0.1) 10/17/17 10:37 Seg Neutrophils % 62.9 % (40.0-70.0) 10/17/17 10:37 Seg Neutrophils # 5.0 K/mm3 (1.8-7.7) 10/17/17 10:37 PT 15.7 Sec. (12.2-14.9) H 10/06/17 18:24 INR 1.18 (0.87-1.13) H 10/06/17 18:24 POC ABG pH 7.396 (7.35-7.45) 10/06/17 18:20 POC ABG pCO2 22.2 (35-45) L 10/06/17 18:20 POC ABG pO2 170 (80-105) H 10/06/17 18:20 POC ABG HCO3 13.6 10/06/17 18:20 POC ABG Total CO2 14 10/06/17 18:20 POC ABG O2 Sat 100 10/06/17 18:20 POC ABG Base Excess -11 10/06/17 18:20 FiO2 85 % 10/06/17 18:20 Sodium 133 mmol/L (137-145) L 10/17/17 10:37 Potassium 4.4 mmol/L (3.6-5.0) D 10/17/17 10:37 Chloride 101.4 mmol/L (98-107) 10/17/17 10:37 Carbon Dioxide 21 mmol/L (22-30) L 10/17/17 10:37 Anion Gap 15 mmol/L 10/17/17 10:37 BUN 7 mg/dL (9-20) L 10/17/17 10:37 Creatinine 0.4 mg/dL (0.8-1.5) L 10/17/17 10:37 Estimated GFR > 60 ml/min 10/17/17 10:37 BUN/Creatinine Ratio 18 % 10/17/17 10:37 Glucose 307 mg/dL (75-100) H 10/17/17 10:37 POC Glucose 200 (70-105) H 10/19/17 07:37 Ketones Quantitative Negative (Negative) 10/06/17 Unknown Lactic Acid 3.10 mmol/L (0.7-2.0) H* 10/07/17 Unknown Calcium 8.4 mg/dL (8.4-10.2) 10/17/17 10:37 Phosphorus 4.60 mg/dL (2.5-4.5) H 10/06/17 19:37 Magnesium 2.20 mg/dL (1.7-2.3) 10/06/17 19:37 Total Bilirubin 1.10 mg/dL (0.1-1.2) 10/07/17 09:29 Direct Bilirubin 0.3 mg/dL (0-0.2) H 10/07/17 09:29 Indirect Bilirubin 0.8 mg/dL 10/07/17 09:29 AST 53 units/L (5-40) H 10/07/17 09:29 ALT 40 units/L (7-56) 10/07/17 09:29 Alkaline Phosphatase 231 units/L (35-129) H 10/07/17 09:29 Ammonia 66.0 umol/L (25-60) H 10/19/17 06:04 Troponin T 0.011 ng/mL (0.00-0.029) 10/06/17 18:24 NT-Pro-B Natriuret Pep 258.8 pg/mL (0-900) 10/06/17 18:24 Total Protein 8.4 g/dL (6.3-8.2) H 10/07/17 09:29 Albumin 2.3 g/dL (3.9-5) L 10/07/17 09:29 Albumin/Globulin Ratio 0.4 % 10/07/17 09:29 Urine Color Yellow (Yellow) 10/07/17 17:37 Urine Turbidity Clear (Clear) 10/07/17 17:37 Urine pH 5.0 (5.0-7.0) 10/07/17 17:37 Ur Specific [place] 1.026 (1.003-1.030) 10/07/17 17:37 Urine Protein 30 mg/dl mg/dL (Negative) 10/07/17 17:37 Urine Glucose (UA) 50 mg/dL (Negative) 10/07/17 17:37 Urine Ketones Neg mg/dL (Negative) 10/07/17 17:37 Urine Blood Lg (Negative) 10/07/17 17:37 Urine Nitrite Neg (Negative) 10/07/17 17:37 Urine Bilirubin Neg (Negative) 10/07/17 17:37 Urine Urobilinogen 2.0 mg/dL (<2.0) 10/07/17 17:37 Ur Leukocyte Esterase Neg (Negative) 10/07/17 17:37 Urine WBC (Auto) 4.0 /HPF (0.0-6.0) 10/07/17 17:37 Urine RBC (Auto) 124.0 /HPF (0.0-6.0) 10/07/17 17:37 Urine Mucus Few /HPF 10/07/17 17:37 Vancomycin Trough 12.8 ug/mL (5.0-20.0) 10/10/17 12:37
[2017-10-19] MEDS: SODIUM CHLORIDE FLUSH SYRINGE 10 ML IV SCH (10:01)
[2017-10-19] MEDS: HumuLIN R SUB-Q SCH ×4 (10:05→22:47)
[2017-10-20] MEDS: CEPHULAC PO SCH ×4 (00:46→18:22)
[2017-10-20] MEDS: SODIUM CHLORIDE FLUSH SYRINGE 10 ML IV SCH ×2 (05:47→10:26)
[2017-10-20 08:33] LABS: BUN/Creatinine Ratio 13; Blood Urea Nitrogen 4 mg/dL (9-20); Calcium 7.7 mg/dL (8.4-10.2); Hemolysis Index 54
[2017-10-20] MEDS: HumuLIN R SUB-Q SCH ×3 (10:24→16:39)
--- NOTE | 2017-10-20 13:02 | Progress Note ---
Assessment and Plan Assessment and plan: Sepsis syndrome Completed Zosyn and vancomycin. Blood cultures - no growth Hepatic encephalopathy. Ammonia level 65 today Continue Lactulose at 45g QID Recheck Ammonia level in am Diabetic ketoacidosis Resolved. Hypernatremia. resolved. dc iv fluid Hypokalemia. resolved Right humerus fracture, s/p sling Malnutrition. Continue nutritional support DVT prophylaxis: SCDs only. No anticoagulation given because of liver cancer. Medically stable for discharge. Awaiting placement History Interval history: Patient is 67 yo with hepatocellular cancer, sent in from SNF for altered mental status, Now fully awake, No fever Hospitalist Physical - Physical exam Narrative exam: General: Not in acute distress, malnourished HEENT:Normocephalic, atraumatic Neck:supple,no JVD Lungs: Clear to auscultation bilaterally, no crackles, no wheeze Heart:S1 and S2 regular tachycardia, no murmurs, rubs or gallop Abd: soft, non tender, non distended, normal bowel sounds Ext: No edema, no clubbing, no cyanosis Neuro: Awake, alert, moves all extremities. - Constitutional Vitals: Temp Pulse Resp BP Pulse Ox 98.4 F 52 L 18 94/49 95 10/20/17 07:24 10/20/17 07:24 10/20/17 07:24 10/20/17 07:24 10/20/17 07:24 General appearance: Present: cachectic Results - Labs CBC & Chem 7: 10/17/17 10:37 10/20/17 07:56 Labs: Laboratory Last Values WBC 8.0 K/mm3 (4.5-11.0) 10/17/17 10:37 RBC 4.06 M/mm3 (3.65-5.03) 10/17/17 10:37 Hgb 12.4 gm/dl (11.8-15.2) 10/17/17 10:37 Hct 36.6 % (35.5-45.6) 10/17/17 10:37 MCV 90 fl (84-94) 10/17/17 10:37 MCH 31 pg (28-32) 10/17/17 10:37 MCHC 34 % (32-34) 10/17/17 10:37 RDW 15.0 % (13.2-15.2) 10/17/17 10:37 Plt Count 239 K/mm3 (140-440) 10/17/17 10:37 Lymph % (Auto) 28.2 % (13.4-35.0) 10/17/17 10:37 [place] % (Auto) 6.3 % (0.0-7.3) 10/17/17 10:37 Eos % (Auto) 1.6 % (0.0-4.3) 10/17/17 10:37 Baso % (Auto) 1.0 % (0.0-1.8) 10/17/17 10:37 Lymph # 2.3 K/mm3 (1.2-5.4) 10/17/17 10:37 [place] # 0.5 K/mm3 (0.0-0.8) 10/17/17 10:37 Eos # 0.1 K/mm3 (0.0-0.4) 10/17/17 10:37 Baso # 0.1 K/mm3 (0.0-0.1) 10/17/17 10:37 Seg Neutrophils % 62.9 % (40.0-70.0) 10/17/17 10:37 Seg Neutrophils # 5.0 K/mm3 (1.8-7.7) 10/17/17 10:37 PT 15.7 Sec. (12.2-14.9) H 10/06/17 18:24 INR 1.18 (0.87-1.13) H 10/06/17 18:24 POC ABG pH 7.396 (7.35-7.45) 10/06/17 18:20 POC ABG pCO2 22.2 (35-45) L 10/06/17 18:20 POC ABG pO2 170 (80-105) H 10/06/17 18:20 POC ABG HCO3 13.6 10/06/17 18:20 POC ABG Total CO2 14 10/06/17 18:20 POC ABG O2 Sat 100 10/06/17 18:20 POC ABG Base Excess -11 10/06/17 18:20 FiO2 85 % 10/06/17 18:20 Sodium 133 mmol/L (137-145) L 10/20/17 07:56 Potassium 3.9 mmol/L (3.6-5.0) 10/20/17 07:56 Chloride 99.7 mmol/L (98-107) 10/20/17 07:56 Carbon Dioxide 24 mmol/L (22-30) 10/20/17 07:56 Anion Gap 13 mmol/L 10/20/17 07:56 BUN 4 mg/dL (9-20) L 10/20/17 07:56 Creatinine 0.3 mg/dL (0.8-1.5) L 10/20/17 07:56 Estimated GFR > 60 ml/min 10/20/17 07:56 BUN/Creatinine Ratio 13 % 10/20/17 07:56 Glucose 207 mg/dL (75-100) H 10/20/17 07:56 POC Glucose 291 (70-105) H 10/20/17 11:22 Ketones Quantitative Negative (Negative) 10/06/17 Unknown Lactic Acid 3.10 mmol/L (0.7-2.0) H* 10/07/17 Unknown Calcium 7.7 mg/dL (8.4-10.2) L 10/20/17 07:56 Phosphorus 4.60 mg/dL (2.5-4.5) H 10/06/17 19:37 Magnesium 2.20 mg/dL (1.7-2.3) 10/06/17 19:37 Total Bilirubin 1.10 mg/dL (0.1-1.2) 10/07/17 09:29 Direct Bilirubin 0.3 mg/dL (0-0.2) H 10/07/17 09:29 Indirect Bilirubin 0.8 mg/dL 10/07/17 09:29 AST 53 units/L (5-40) H 10/07/17 09:29 ALT 40 units/L (7-56) 10/07/17 09:29 Alkaline Phosphatase 231 units/L (35-129) H 10/07/17 09:29 Ammonia 65.0 umol/L (25-60) H 10/20/17 07:56 Troponin T 0.011 ng/mL (0.00-0.029) 10/06/17 18:24 NT-Pro-B Natriuret Pep 258.8 pg/mL (0-900) 10/06/17 18:24 Total Protein 8.4 g/dL (6.3-8.2) H 10/07/17 09:29 Albumin 2.3 g/dL (3.9-5) L 10/07/17 09:29 Albumin/Globulin Ratio 0.4 % 10/07/17 09:29 Urine Color Yellow (Yellow) 10/07/17 17:37 Urine Turbidity Clear (Clear) 10/07/17 17:37 Urine pH 5.0 (5.0-7.0) 10/07/17 17:37 Ur Specific [place] 1.026 (1.003-1.030) 10/07/17 17:37 Urine Protein 30 mg/dl mg/dL (Negative) 10/07/17 17:37 Urine Glucose (UA) 50 mg/dL (Negative) 10/07/17 17:37 Urine Ketones Neg mg/dL (Negative) 10/07/17 17:37 Urine Blood Lg (Negative) 10/07/17 17:37 Urine Nitrite Neg (Negative) 10/07/17 17:37 Urine Bilirubin Neg (Negative) 10/07/17 17:37 Urine Urobilinogen 2.0 mg/dL (<2.0) 10/07/17 17:37 Ur Leukocyte Esterase Neg (Negative) 10/07/17 17:37 Urine WBC (Auto) 4.0 /HPF (0.0-6.0) 10/07/17 17:37 Urine RBC (Auto) 124.0 /HPF (0.0-6.0) 10/07/17 17:37 Urine Mucus Few /HPF 10/07/17 17:37 Vancomycin Trough 12.8 ug/mL (5.0-20.0) 10/10/17 12:37
--- NOTE | 2017-10-20 14:28 | Discharge Summary ---
Providers - Providers Date of Admission: 10/06/17 23:51 Date of discharge: 10/20/17 Attending physician: THERON RAMIREZ 10/07/17 10:18 Consult to Physician [CONS] Routine Comment: YARON Starr NOTIFIED [id number] Consulting Provider: NAILA PALMER Physician Instructions: Reason For Exam: hepatic encephalopathy 10/12/17 12:18 Physical Therapy Evaluation and Treat [CONS] Routine Comment: Reason For Exam: Debility 10/12/17 12:19 Occupational Therapy Evaluate and Treat [CONS] Routine Comment: Reason For Exam: Debility Primary care physician: SPECIMEN TECHNICIAN Hospitalization Condition: Fair Disposition: DC/[place]-03 SNF W [facility] CERT Core Measure Documentation - Palliative Care Palliative Care/ Comfort Measures: Not Applicable - Core Measures Any of the following diagnoses?: none Exam - Constitutional Vitals: Temp Pulse Resp BP Pulse Ox 98.4 F 52 L 18 94/49 95 10/20/17 07:24 10/20/17 07:24 10/20/17 07:24 10/20/17 07:24 10/20/17 07:24 Plan Activity: advance as tolerated Additional Instructions: 1.Follow up with Physician at SNF in 2-3 days. 2.Check BMP,Ammonia level on Wednesday10/25/17 to be followed by Physician at SNF. Follow up with: PRIMARY CARE, [Primary Care Provider] - 3-5 Days Prescriptions: Insulin NPH/Regular [NovoLIN 70/30] 10 unit SUB-Q BIDDIAB #1 vial Lactulose [Cephulac] 45 gm PO Q6HR 30 Days oral.liqd
[2017-10-20 15:44] VITALS: BP 101/58
== END 2017-10-20 18:00 | disposition home or self-care (01) | DRG 871 ==
LOC: ED 17:43 → CC1 23:51 → 2B-ACE 10-07 14:30
PROVIDERS: ADMIT Internal Medicine; ATTEND Internal Medicine
PROC: 5A09357 Assistance with Respiratory Ventilation, Less than 24 Consecutive Hours, Continuous Positive Airway Pressure (ICD-10-PCS; principal; 2017-10-06)
DX: A41.9 Sepsis, unspecified organism (principal); E11.10 Type 2 diabetes mellitus with ketoacidosis without coma; J18.9 Pneumonia, unspecified organism; E46 Unspecified protein-calorie malnutrition; Z68.1 Body mass index [BMI] 19.9 or less, adult; E87.0 Hyperosmolality and hypernatremia; M84.421A Pathological fracture, right humerus, initial encounter for fracture; K72.90 Hepatic failure, unspecified without coma; E87.6 Hypokalemia; F03.90 Unspecified dementia, unspecified severity, without behavioral disturbance, psychotic disturbance, mood disturbance, and anxiety; K74.60 Unspecified cirrhosis of liver; I50.9 Heart failure, unspecified; I11.0 Hypertensive heart disease with heart failure; R65.20 Severe sepsis without septic shock; Z85.89 Personal history of malignant neoplasm of other organs and systems; Z79.4 Long term (current) use of insulin; Z79.899 Other long term (current) drug therapy
CPT/HCPCS: 31720; 36415; 70450; 71045; 71260; 74018; 74177; 80048; 80053; 80074; 80202; 81001; 82010; 82140; 82803; 82962; 83735; 83880; 84100; 84132; 84484; 85025; 85027; 85610; 87040; 93005; 93010; 94640; 94760; 99291; 99292; G8978-GP; G8979-GP; G8987-GO; G8988-GO; J1815; J2405; J2543; J3370; J3480; J7030; J7050; J7070; Q9967

== ENCOUNTER 2017-11-10 00:34 | Emergency (ER) | payer MEDICARE ==
--- NOTE | 2017-11-10 01:08 | Emergency Department Report ---
ED General Adult HPI - General Chief complaint: Extremity Injury, Lower Stated complaint: L FOOT PAIN Time Seen by Provider: 11/10/17 01:08 Source: EMS Mode of arrival: Stretcher Limitations: Altered Mental Status, Physical Limitation - History of Present Illness Initial comments: Patient is a 67-year-old male who presents with left foot pain. Patient has had left foot pain earlier on this weekend. Patient's pain has been a 5 out 10 negative for pain walking on it makes it worse or makes better. Patient received an x-ray and oral pain medicine at his [place] [facility]. - Related Data Home Medications Medication Instructions Recorded Confirmed Last Taken Cholecalciferol (Vitamin D3) 1,000 unit PO DAILY 10/07/17 10/07/17 Unknown [Vitamin D3] Esomeprazole Magnesium [Nexium] 40 mg PO QAM 10/07/17 10/07/17 Unknown Folic Acid [Folvite] 1 mg PO QDAY 10/07/17 10/07/17 Unknown Pyridoxine [Vitamin B-6] 50 mg PO DAILY 10/07/17 10/07/17 Unknown Thiamine [Vitamin B-1] 100 mg PO QDAY 10/07/17 10/07/17 Unknown Previous Rx's Medication Instructions Recorded Last Taken Type Insulin NPH/Regular [NovoLIN 70/30] 10 unit SUB-Q BIDDIAB #1 vial 10/20/17 Unknown Rx Lactulose [Cephulac] 45 gm PO Q6HR 30 Days oral.liqd 10/20/17 Unknown Rx Acetaminophen 500 mg PO Q6H #30 tablet 11/10/17 Unknown Rx Allergies Allergy/AdvReac Type Severity Reaction Status Date / Time No Known Allergies Allergy Verified 10/06/17 18:35 ED Review of Systems ROS: Stated complaint: L FOOT PAIN Other details as noted in HPI Constitutional: denies: chills, fever Eyes: denies: eye pain, eye discharge, vision change ENT: denies: ear pain, throat pain Respiratory: denies: cough, shortness of breath, wheezing Cardiovascular: denies: chest pain, palpitations Endocrine: no symptoms reported Gastrointestinal: denies: abdominal pain, nausea, diarrhea Genitourinary: denies: urgency, dysuria Musculoskeletal: denies: back pain, joint swelling, arthralgia Skin: denies: rash, lesions Neurological: denies: headache, weakness, paresthesias Psychiatric: denies: anxiety, depression Hematological/Lymphatic: denies: easy bleeding, easy bruising ED Past Medical Hx - Past Medical History Previous Medical History?: Yes Hx Hypertension: Yes (Unknown) Hx Congestive Heart Failure: Yes Hx Diabetes: Yes Hx Asthma: Yes Hx Tuberculosis: Yes (Latent) Hx Dementia: Yes 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, cirrhosis - Social History Smoking Status: Unknown if ever smoked - Medications Home Medications: Home Medications Medication Instructions Recorded Confirmed Last Taken Type Cholecalciferol (Vitamin D3) 1,000 unit PO DAILY 10/07/17 10/07/17 Unknown History [Vitamin D3] Esomeprazole Magnesium [Nexium] 40 mg PO QAM 10/07/17 10/07/17 Unknown History Folic Acid [Folvite] 1 mg PO QDAY 10/07/17 10/07/17 Unknown History Pyridoxine [Vitamin B-6] 50 mg PO DAILY 10/07/17 10/07/17 Unknown History Thiamine [Vitamin B-1] 100 mg PO QDAY 10/07/17 10/07/17 Unknown History Insulin NPH/Regular [NovoLIN 70/30] 10 unit SUB-Q BIDDIAB #1 vial 10/20/17 Unknown Rx Lactulose [Cephulac] 45 gm PO Q6HR 30 Days oral.liqd 10/20/17 Unknown Rx Acetaminophen 500 mg PO Q6H #30 tablet 11/10/17 Unknown Rx ED Physical Exam - General Limitations: Altered Mental Status, Physical Limitation General appearance: alert, in no apparent distress - Head Head exam: Present: atraumatic, normocephalic - Eye Eye exam: Present: normal appearance - ENT ENT exam: Present: mucous membranes moist - Neck Neck exam: Present: normal inspection - Respiratory Respiratory exam: Present: normal lung sounds bilaterally. Absent: respiratory distress - Cardiovascular Cardiovascular Exam: Present: regular rate, normal rhythm. Absent: systolic murmur, diastolic murmur, rubs, gallop - GI/Abdominal GI/Abdominal exam: Present: soft, normal bowel sounds - Rectal Rectal exam: Present: deferred - Extremities Exam Extremities exam: Present: normal inspection, other (left foot ttp ) - Back Exam Back exam: Present: normal inspection - Neurological Exam Neurological exam: Present: alert, oriented X3 - Psychiatric Psychiatric exam: Present: normal affect, normal mood - Skin Skin exam: Present: warm, dry, intact, normal color. Absent: rash ED Course Vital Signs 11/10/17 00:46 Temperature 99.2 F Pulse Rate 70 Respiratory 18 Rate Blood Pressure 123/60 O2 Sat by Pulse 100 Oximetry ED Medical Decision Making - Radiology Data Radiology results: report reviewed, image reviewed X-ray of left foot: Shows proximal phalanx fracture of first metatarsal - Medical Decision Making Chief medical diagnosis: First metatarsal fracture Differential multiple medic ankle fracture, crush injury of foot X-rays of the patient's insurance. And all the walking boot on the patient Critical care attestation.: If time is entered above; I have spent that time in minutes in the direct care of this critically ill patient, excluding procedure time. ED Disposition Clinical Impression: Fracture of proximal phalanx of great toe Qualifiers: Encounter type: subsequent encounter Fracture type: closed Fracture alignment: nondisplaced Laterality: left Fracture healing: with routine healing Qualified Code(s): S92.415D - Nondisplaced fracture of proximal phalanx of left great toe , subsequent encounter for fracture with routine healing Disposition: DC-01 TO HOME OR SELFCARE Is pt being admited?: No Does the pt Need Aspirin: No Condition: Stable Instructions: Toe Fracture (ED), Foot Fracture in Adults (ED) Prescriptions: Acetaminophen 500 mg PO Q6H #30 tablet Referrals: ROLAND GIUDO MD [Primary Care Provider] - 3-5 Days EMPERATRIZ CULVER DPM [Staff Physician] - 3-5 Days
--- NOTE | 2017-11-10 01:29 | XRay Report ---
FINAL REPORT EXAM: XR FOOT 2V LT HISTORY: LEFT foot fracture TECHNIQUE: AP and lateral views of the left foot were submitted. FINDINGS: There is an obliquely oriented nondisplaced fracture along the base of the proximal phalanx of the great toe with adjacent soft tissue swelling. No additional fractures are identified. There is a small spur along the posterior margin of the calcaneus. IMPRESSION: Acute obliquely oriented nondisplaced fracture along the base of the proximal phalanx of the great toe with adjacent soft tissue swelling.
[2017-11-10 08:14] VITALS: BP 132/74
== END 2017-11-10 07:40 | disposition home or self-care (01) ==
LOC: ED 00:34
DX: S92.415D Nondisplaced fracture of proximal phalanx of left great toe, subsequent encounter for fracture with routine healing (principal); I11.0 Hypertensive heart disease with heart failure; E11.9 Type 2 diabetes mellitus without complications; J45.909 Unspecified asthma, uncomplicated; Z79.4 Long term (current) use of insulin; K74.60 Unspecified cirrhosis of liver; X58.XXXD Exposure to other specified factors, subsequent encounter
CPT/HCPCS: 99283

== ENCOUNTER 2017-12-09 18:20 | Emergency (ER) | payer MEDICARE ==
--- NOTE | 2017-12-09 20:17 | Emergency Department Report ---
ED General Adult HPI - General Chief complaint: Fall Stated complaint: FALL Time Seen by Provider: 12/09/17 19:41 Source: EMS Mode of arrival: Stretcher Limitations: No Limitations - History of Present Illness Initial comments: Patient presents to the ED from a local half-way for a fall with a laceration to her forehead. It is reported as a ground-level fall without loss of consciousness. The patient has baseline dementia but is also Most of the history but denies pain -: Sudden Location: head Improves with: none Worsens with: none Associated Symptoms: denies other symptoms Treatments Prior to Arrival: none - Related Data Home Medications Medication Instructions Recorded Confirmed Last Taken Cholecalciferol (Vitamin D3) 1,000 unit PO DAILY 10/07/17 10/07/17 Unknown [Vitamin D3] Esomeprazole Magnesium [Nexium] 40 mg PO QAM 10/07/17 10/07/17 Unknown Folic Acid [Folvite] 1 mg PO QDAY 10/07/17 10/07/17 Unknown Pyridoxine [Vitamin B-6] 50 mg PO DAILY 10/07/17 10/07/17 Unknown Thiamine [Vitamin B-1] 100 mg PO QDAY 10/07/17 10/07/17 Unknown Previous Rx's Medication Instructions Recorded Last Taken Type Insulin NPH/Regular [NovoLIN 70/30] 10 unit SUB-Q BIDDIAB #1 vial 10/20/17 Unknown Rx Lactulose [Cephulac] 45 gm PO Q6HR 30 Days oral.liqd 10/20/17 Unknown Rx Acetaminophen 500 mg PO Q6H #30 tablet 11/10/17 Unknown Rx Allergies Allergy/AdvReac Type Severity Reaction Status Date / Time No Known Allergies Allergy Verified 10/06/17 18:35 ED Review of Systems ROS: Stated complaint: FALL Other details as noted in HPI Comment: unable to obtain due to the patient's baseline reported dementia Constitutional: chills, fever ED Past Medical Hx - Past Medical History Hx Hypertension: Yes (Unknown) Hx Congestive Heart Failure: Yes Hx Diabetes: Yes Hx Asthma: Yes Hx Tuberculosis: Yes (Latent) Hx Dementia: Yes 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, cirrhosis - Social History Smoking Status: Unknown if ever smoked - Medications Home Medications: Home Medications Medication Instructions Recorded Confirmed Last Taken Type Cholecalciferol (Vitamin D3) 1,000 unit PO DAILY 10/07/17 10/07/17 Unknown History [Vitamin D3] Esomeprazole Magnesium [Nexium] 40 mg PO QAM 10/07/17 10/07/17 Unknown History Folic Acid [Folvite] 1 mg PO QDAY 10/07/17 10/07/17 Unknown History Pyridoxine [Vitamin B-6] 50 mg PO DAILY 10/07/17 10/07/17 Unknown History Thiamine [Vitamin B-1] 100 mg PO QDAY 10/07/17 10/07/17 Unknown History Insulin NPH/Regular [NovoLIN 70/30] 10 unit SUB-Q BIDDIAB #1 vial 10/20/17 Unknown Rx Lactulose [Cephulac] 45 gm PO Q6HR 30 Days oral.liqd 10/20/17 Unknown Rx Acetaminophen 500 mg PO Q6H #30 tablet 11/10/17 Unknown Rx ED Physical Exam - General Limitations: Other (dementia) General appearance: in no apparent distress, other (patient is demented but responds to questions) - Head Head exam: Present: atraumatic, other (4 cm laceration to the forehead) - Eye Eye exam: Present: normal appearance, PERRL, EOMI - ENT ENT exam: Present: mucous membranes moist - Neck Neck exam: Present: normal inspection - Respiratory Respiratory exam: Present: normal lung sounds bilaterally. Absent: respiratory distress, wheezes, rales, rhonchi - Cardiovascular Cardiovascular Exam: Present: regular rate, normal rhythm. Absent: systolic murmur, diastolic murmur, rubs, gallop - GI/Abdominal GI/Abdominal exam: Present: soft, normal bowel sounds. Absent: distended, tenderness - Rectal Rectal exam: Present: deferred - Extremities Exam Extremities exam: Present: normal inspection - Neurological Exam Neurological exam: Present: alert, other (patient is alert and responsive to his verbal stimuli. Further neurologic exam could not be completed due to the patient's baseline dementia) - Psychiatric Psychiatric exam: Present: other (not able to assess due to the patient's baseline dementia) - Skin Skin exam: Present: warm, dry, intact, normal color. Absent: rash ED Course Vital Signs 12/09/17 12/09/17 19:02 20:28 Temperature 97.6 F Pulse Rate 70 Respiratory 18 20 Rate Blood Pressure 96/46 O2 Sat by Pulse 98 98 Oximetry - Laceration /Wound Repair Head Wound Length (cm): 4 Wound's Depth, Shape: superficial, linear Wound Explored: no foreign body removed Betadine Prep?: Yes Wound Repaired With: Steri-strips, Dermabond Layer Closure?: Yes (1) Sterile Dressing Applied?: Yes ED Medical Decision Making - Medical Decision Making Results reviewed Critical care attestation.: If time is entered above; I have spent that time in minutes in the direct care of this critically ill patient, excluding procedure time. ED Disposition Clinical Impression: Closed head injury, Laceration of head, Fall Disposition: DC-01 TO HOME OR SELFCARE Is pt being admited?: No Does the pt Need Aspirin: No Condition: Stable Instructions: Minor Head Injury (ED), Laceration (ED) Referrals: PRIMARY CARE, [Primary Care Provider] - 3-5 Days STUART BONE MD [Staff Physician] - 3-5 Days Time of Disposition: 22:48
--- NOTE | 2017-12-09 20:49 | Cat Scan Report ---
FINAL REPORT EXAM: CT HEAD/BRAIN WO CON HISTORY: head injury TECHNIQUE: 2.5 millimeter axial images from the skullbase to the vertex. Comparison: Head CT dated October 07, 2017 FINDINGS: There is no evidence of an acute intracranial process, intracranial hemorrhage or mass effect. Ventricular size is concordant with the degree of atrophy. There is atherosclerotic vascular calcification of the internal carotid arteries bilaterally at the skull at the base. The visualized portions of the orbits, paranasal and mastoid sinuses are unremarkable. There is no evidence of fracture. There is mild left frontal scalp soft tissue swelling/hematoma. IMPRESSION: 1. No evidence of an acute intracranial process, intracranial hemorrhage or mass effect. 2. No evidence of fracture. 3. Left frontal scalp soft tissue swelling/hematoma.
--- NOTE | 2017-12-09 20:57 | Cat Scan Report ---
FINAL REPORT EXAM: CT CERVICAL SPINE WO CON HISTORY: fall TECHNIQUE: Axial helical imaging through the cervical spine with sagittal and coronal reformatted images obtained. Comparison: None FINDINGS: Bony alignment is normal. The vertebral heights are maintained. There is loss of height of the disc spaces throughout the cervical spine with associated endplate change with relative sparing of the C2-C3 disc. There is multiple level degenerative facet change. There is no evidence of bony canal stenosis. There is multiple level foraminal stenosis secondary to spondylitic change. Visualization of detail the contents of the cervical canal is limited by artifact. There is no evidence of fracture or subluxation. The visualized portions of the lungs are notable for evidence of pulmonary emphysema. There is atherosclerotic vascular calcification at the carotid bifurcation bilaterally. Soft tissue density in the external auditory canals bilaterally may be secondary to cerumen. IMPRESSION: 1. No evidence of fracture or subluxation of the cervical spine. 2. 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 Visualization of detail of the contents of the cervical canal is limited by artifact. 3. Evidence of pulmonary emphysema. 4. Atherosclerotic vascular calcification carotid bifurcation bilaterally. 5. Probable bilateral cerumen impaction.
[2017-12-10 01:10] VITALS: BP 114/52
== END 2017-12-10 01:23 | disposition home or self-care (01) ==
LOC: ED 18:20
DX: S01.81XA Laceration without foreign body of other part of head, initial encounter (principal); I11.0 Hypertensive heart disease with heart failure; I50.9 Heart failure, unspecified; E11.9 Type 2 diabetes mellitus without complications; J45.909 Unspecified asthma, uncomplicated; Z79.4 Long term (current) use of insulin; W18.30XA Fall on same level, unspecified, initial encounter; Y93.89 Activity, other specified; Y92.89 Other specified places as the place of occurrence of the external cause; Y99.8 Other external cause status
CPT/HCPCS: 70450; 72125; 99283

== ENCOUNTER 2018-02-17 22:44 | Emergency (ER) | payer MEDICARE ==
[~2018-02-17 22:44] MED LIST: ADRENALIN ONE; SODIUM BICARBONATE IV ONE
--- NOTE | 2018-02-17 23:01 | Emergency Department Report ---
ED CPR HPI - General Stated Complaint: CARDIAC ARREST Time Seen by Provider: 02/17/18 22:44 - History of Present Illness Initial Comments: This 67-year-old male presents emergency room for cardiac arrest. Patient was brought in by EMS that initiated CPR and ACLS protocols. The patient was given 2 rounds of epi and amiodarone. Patient was pulseless entire time however had one bout of V. fib and V. tach and was shocked 3 times. Patient was found by nursing staff of the long-term in his bed and unknown amount of time down. Patient has been pulseless the entire time. Patient was intubated by EMS. Complaint: found unresponsive -: unknown Place: [facility] Bystander CPR Performed: No AED Applied by Bystander/Roustabout: No Shock Advised: Yes Number of Shocks Delivered: 3 Initial Findings in the Field: unresponsive, no pulse ROSC in the Field: No Associated Injuries: No Treatments Prior to Arrival: intubation, epinephrine mgs #, amiodarone - Related Data Home Medications Medication Instructions Recorded Confirmed Last Taken Cholecalciferol (Vitamin D3) 1,000 unit PO DAILY 10/07/17 10/07/17 Unknown [Vitamin D3] Esomeprazole Magnesium [Nexium] 40 mg PO QAM 10/07/17 10/07/17 Unknown Folic Acid [Folvite] 1 mg PO QDAY 10/07/17 10/07/17 Unknown Pyridoxine [Vitamin B-6] 50 mg PO DAILY 10/07/17 10/07/17 Unknown Thiamine [Vitamin B-1] 100 mg PO QDAY 10/07/17 10/07/17 Unknown Previous Rx's Medication Instructions Recorded Last Taken Type Insulin NPH/Regular [NovoLIN 70/30] 10 unit SUB-Q BIDDIAB #1 vial 10/20/17 Unknown Rx Lactulose [Cephulac] 45 gm PO Q6HR 30 Days oral.liqd 10/20/17 Unknown Rx Acetaminophen 500 mg PO Q6H #30 tablet 11/10/17 Unknown Rx Allergies Allergy/AdvReac Type Severity Reaction Status Date / Time No Known Allergies Allergy Verified 10/06/17 18:35 ED Review of Systems ROS: Stated complaint: CARDIAC ARREST Other details as noted in HPI Comment: Unobtainable due to pts medical conditions ED Past Medical Hx - Past Medical History Previous Medical History?: Yes Hx Hypertension: Yes (Unknown) Hx Congestive Heart Failure: Yes Hx Diabetes: Yes Hx Asthma: Yes Hx Tuberculosis: Yes (Latent) Hx Dementia: Yes 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, cirrhosis - Surgical History Past Surgical History?: No - Family History Family history: no significant - Social History Smoking Status: Unknown if ever smoked Substance Use Type: None - Medications Home Medications: Home Medications Medication Instructions Recorded Confirmed Last Taken Type Cholecalciferol (Vitamin D3) 1,000 unit PO DAILY 10/07/17 10/07/17 Unknown History [Vitamin D3] Esomeprazole Magnesium [Nexium] 40 mg PO QAM 10/07/17 10/07/17 Unknown History Folic Acid [Folvite] 1 mg PO QDAY 10/07/17 10/07/17 Unknown History Pyridoxine [Vitamin B-6] 50 mg PO DAILY 10/07/17 10/07/17 Unknown History Thiamine [Vitamin B-1] 100 mg PO QDAY 10/07/17 10/07/17 Unknown History Insulin NPH/Regular [NovoLIN 70/30] 10 unit SUB-Q BIDDIAB #1 vial 10/20/17 Unknown Rx Lactulose [Cephulac] 45 gm PO Q6HR 30 Days oral.liqd 10/20/17 Unknown Rx Acetaminophen 500 mg PO Q6H #30 tablet 11/10/17 Unknown Rx ED Physical Exam - General Limitations: Altered Mental Status, Physical Limitation General appearance: obtunded - Head Head exam: Present: atraumatic, normocephalic - Eye Eye exam: Present: other - ENT ENT exam: Present: mucous membranes dry - Neck Neck exam: Present: normal inspection - Respiratory Respiratory exam: Present: normal lung sounds bilaterally, other (ET tube in place) - Cardiovascular Cardiovascular Exam: Present: other (no pulse noted) - GI/Abdominal GI/Abdominal exam: Present: soft - Rectal Rectal exam: Present: deferred - Neurological Exam Neurological exam: Present: altered - Skin Skin exam: Present: warm, dry. Absent: rash ED Course - Reevaluation(s) Reevaluation #1: CPR continued upon arrival to the ER. Report received from EMS. Patient given multiple medications and unable to resuscitate patient. Resuscitation unsuccessful. No cardiac motion on ultrasound. No palpable pulse. Asystole on monitor Patient pronounced. See code note. Time of 2257 02/17/18 22:40 ED Medical Decision Making - Medical Decision Making Patient is 67-year-old male that presents to the emergency room with cardiac arrest. Patient was unable to resuscitated. See code note. - Differential Diagnosis cardiac arrest. Asystole. Critical Care Time: Yes Critical care attestation.: If time is entered above; I have spent that time in minutes in the direct care of this critically ill patient, excluding procedure time. Critical Care Time: 15 minutes for cc time ED Disposition Clinical Impression: Cardiac arrest Disposition: DC-20 Is pt being admited?: No Does the pt Need Aspirin: No Condition: Undetermined Referrals: PRIMARY CARE, [Primary Care Provider] - 3-5 Days Time of Disposition: 23:00
== END 2018-02-18 05:00 ==
LOC: ED 22:44
DX: I46.9 Cardiac arrest, cause unspecified (principal); I11.0 Hypertensive heart disease with heart failure; I50.9 Heart failure, unspecified; E11.9 Type 2 diabetes mellitus without complications; J45.909 Unspecified asthma, uncomplicated
CPT/HCPCS: 92950; 99285; J0171